=== PATIENT | female | born 1950 | race Caucasian/White ===

== ENCOUNTER 2016-12-24 11:07 | Emergency (ER) | payer BC, OTHER ==
[2016-12-24] MEDS ORDERED: KETOROLAC 60 MG/2 ML VIAL IVP STA (11:38)
[2016-12-24] MEDS ORDERED: DIAZEPAM 5 MG TAB PO STA (11:39)
--- NOTE | 2016-12-24 11:46 | ED ---
General Adult HPI - General Chief complaint: Chest Pain Stated complaint: RHONDA, PAIN UNDER LEFT BREAST Time Seen by Provider: 12/24/16 11:15 Source: patient, RN notes reviewed Mode of arrival: ambulatory Limitations: no limitations - History of Present Illness Initial comments: This is a 66-year-old female who presents to the emergency department complaining of left lateral chest pain with movement or deep breathing. Patient states she was lifting a heavy bin at work when she felt pain under her left breast. Patient states ever since then anytime she moves twists or bends the pain is worse. Patient states pressing on that area also increases the pain. Patient denies any shortness of breath or difficulty breathing. Patient denies any palpitation. Patient denies any diaphoresis. Patient denies any nausea vomiting. Patient denies abdominal pain. Patient denies any back pain. Patient denies any recent injury other than the one mentioned. Patient denies any lightheadedness dizziness or near syncopal episode. - Related Data Home Medications Medication Instructions Recorded Confirmed Colchicine [Colcrys] 0.6 mg PO DIRECTED PRN 05/13/14 12/24/16 Levothyroxine Sodium [Synthroid] 25 mcg PO DAILY 05/13/14 12/24/16 Metoprolol Tartrate 25 mg PO DAILY 05/13/14 12/24/16 Omeprazole 20 mg PO DAILY 05/13/14 12/24/16 buPROPion [Wellbutrin] 300 mg PO DAILY 05/13/14 12/24/16 Lisinopril [Prinivil] 5 mg PO DAILY 12/08/15 12/24/16 lamoTRIgine [LaMICtal] 100 mg PO QAM 12/08/15 12/24/16 lamoTRIgine [LaMICtal] 150 mg PO HS 12/19/15 12/24/16 Previous Rx's Medication Instructions Recorded Ibuprofen [Motrin] 600 mg PO Q6HR PRN #20 tab 12/24/16 traMADol HCl [Ultram] 50 mg PO Q6H PRN #20 tab 12/24/16 Allergies Allergy/AdvReac Type Severity Reaction Status Date / Time amlodipine besylate Allergy foot Verified 12/24/16 13:02 [From [facility]] swelling, rectal bleeding Review of Systems ROS Statement: Those systems with pertinent positive or pertinent negative responses have been documented in the HPI. ROS Other: All systems not noted in ROS Statement are negative. Past Medical History Past Medical History: Cancer, GERD/Reflux, Hypertension, Osteoarthritis (OA), Thyroid Disorder Additional Past Medical History / Comment(s): "dr watching kidneys-not sure why ", gout, hx cervical cancer History of Any Multi-Drug Resistant Organisms: None Reported Past Surgical History: Bladder Surgery, Hysterectomy, Orthopedic Surgery Additional Past Surgical History / Comment(s): bilat carpal tunnel, bladder suspension, ORIF rt ankle, Past Anesthesia/Blood Transfusion Reactions: No Reported Reaction Past Psychological History: Anxiety, Bipolar, Depression Smoking Status: Former smoker Past Alcohol Use History: Occasional Past Drug Use History: None Reported - Past Family History Sister(s) Family Medical History: Cancer General Exam - General Exam Comments Initial Comments: GENERAL: Patient is well-developed and well-nourished. Patient is nontoxic and well- hydrated and is in mild distress. ENT: Neck is soft and supple. No significant lymphadenopathy is noted. Oropharynx is clear. Moist mucous membranes. Neck has full range of motion without eliciting any pain. There is no thyroid enlargement and no masses were felt. EYES: The sclera were anicteric and conjunctiva were pink and moist. Extraocular movements were intact and pupils were equal round and reactive to light. Eyelids were unremarkable. PULMONARY: Unlabored respirations. Good breath sounds bilaterally. No audible rales rhonchi or wheezing was noted. CARDIOVASCULAR: There is a regular rate and rhythm without any murmurs gallops or rubs. Patient 's chest pain to palpation of the lateral aspect of her chest just under the left breast. ABDOMEN: Abdomen is soft nontender nondistended. SKIN: Skin is clear with no lesions or rashes and otherwise unremarkable. NEUROLOGIC: Patient is alert and oriented x3. Cranial nerves II through XII are grossly intact. Motor and sensory are also intact. Normal speech, volume and content. Symmetrical smile. Cerebellar exam grossly intact. MUSCULOSKELETAL: Normal extremities with adequate strength and full range of motion. No lower extremity swelling or edema. No calf tenderness. LYMPHATICS: No significant lymphadenopathy is noted PSYCHIATRIC: Normal psychiatric evaluation. Limitations: no limitations Course Vital Signs 12/24/16 12/24/16 12/24/16 11:12 12:16 13:05 Temperature 97.4 F L Pulse Rate 73 68 61 Respiratory 20 18 20 Rate Blood Pressure 187/85 167/80 148/80 O2 Sat by Pulse 97 97 96 Oximetry Medical Decision Making - Lab Data Result diagrams: 12/24/16 12:14 12/24/16 12:14 Lab Results 12/24/16 12/24/16 12/24/16 Range/Units 12:14 12:14 12:14 WBC 8.4 (3.8-10.6) k/uL RBC 4.21 (3.80-5.40) m/uL Hgb 12.8 (11.4-16.0) gm/dL Hct 38.2 (34.0-46.0) % MCV 90.9 (80.0-100.0) fL MCH 30.5 (25.0-35.0) pg MCHC 33.6 (31.0-37.0) g/dL RDW 13.8 (11.5-15.5) % Plt Count 303 (150-450) k/uL Neutrophils % 50 % Lymphocytes % 36 % Monocytes % 8 % Eosinophils % 2 % Basophils % 1 % Neutrophils # 4.2 (1.3-7.7) k/uL Lymphocytes # 3.0 (1.0-4.8) k/uL Monocytes # 0.6 (0-1.0) k/uL Eosinophils # 0.2 (0-0.7) k/uL Basophils # 0.1 (0-0.2) k/uL PT 10.2 (9.0-12.0) sec INR 1.0 (<1.2) APTT 23.4 (22.0-30.0) sec Sodium 137 (137-145) mmol/L Potassium 4.5 (3.5-5.1) mmol/L Chloride 102 (98-107) mmol/L Carbon Dioxide 24 (22-30) mmol/L Anion Gap 11 mmol/L BUN 37 H (7-17) mg/dL Creatinine 1.26 H (0.52-1.04) mg/dL Est GFR (MDRD) Af Amer 52 (>60 ml/min/1.73 sqM) Est GFR (MDRD) Non-Af 43 (>60 ml/min/1.73 sqM) Glucose 94 (74-99) mg/dL Calcium 10.9 H (8.4-10.2) mg/dL Magnesium 1.4 L (1.6-2.3) mg/dL Total Bilirubin 0.8 (0.2-1.3) mg/dL AST 55 H (14-36) U/L ALT 65 H (9-52) U/L Alkaline Phosphatase 80 (38-126) U/L Total Creatine Kinase (30-135) U/L CK-MB (CK-2) (0.0-2.4) ng/mL CK-MB (CK-2) Rel Index Troponin I (0.000-0.034) ng/mL Total Protein 7.4 (6.3-8.2) g/dL Albumin 4.3 (3.5-5.0) g/dL 12/24/16 Range/Units 12:14 WBC (3.8-10.6) k/uL RBC (3.80-5.40) m/uL Hgb (11.4-16.0) gm/dL Hct (34.0-46.0) % MCV (80.0-100.0) fL MCH (25.0-35.0) pg MCHC (31.0-37.0) g/dL RDW (11.5-15.5) % Plt Count (150-450) k/uL Neutrophils % % Lymphocytes % % Monocytes % % Eosinophils % % Basophils % % Neutrophils # (1.3-7.7) k/uL Lymphocytes # (1.0-4.8) k/uL Monocytes # (0-1.0) k/uL Eosinophils # (0-0.7) k/uL Basophils # (0-0.2) k/uL PT (9.0-12.0) sec INR (<1.2) APTT (22.0-30.0) sec Sodium (137-145) mmol/L Potassium (3.5-5.1) mmol/L Chloride (98-107) mmol/L Carbon Dioxide (22-30) mmol/L Anion Gap mmol/L BUN (7-17) mg/dL Creatinine (0.52-1.04) mg/dL Est GFR (MDRD) Af Amer (>60 ml/min/1.73 sqM) Est GFR (MDRD) Non-Af (>60 ml/min/1.73 sqM) Glucose (74-99) mg/dL Calcium (8.4-10.2) mg/dL Magnesium (1.6-2.3) mg/dL Total Bilirubin (0.2-1.3) mg/dL AST (14-36) U/L ALT (9-52) U/L Alkaline Phosphatase (38-126) U/L Total Creatine Kinase 388 H (30-135) U/L CK-MB (CK-2) 6.4 H* (0.0-2.4) ng/mL CK-MB (CK-2) Rel Index 1.6 Troponin I <0.012 (0.000-0.034) ng/mL Total Protein (6.3-8.2) g/dL Albumin (3.5-5.0) g/dL Disposition Clinical Impression: Strain of chest wall Disposition: HOME SELF-CARE Condition: Good Instructions: Chest Wall Pain (ED) Prescriptions: Ibuprofen [Motrin] 600 mg PO Q6HR PRN #20 tab PRN Reason: For pain traMADol HCl [Ultram] 50 mg PO Q6H PRN #20 tab PRN Reason: When necessary for pain Referrals: Jesus Sequeira MD [Primary Care Provider] - 1-2 days Time of Disposition: 13:17
[2016-12-24 12:24] LABS: Basophils # (A) 0.1 k/uL (0-0.2); Basophils % (A) 1 %; CH 31.9; CHCM 35.3; Eosinophils # (A) 0.2 k/uL (0-0.7); Eosinophils % (A) 2 %; HCT 38.2 % (34.0-46.0); HDW 2.24; HGB 12.8 gm/dL (11.4-16.0); Luc % (Auto) 4; Lymphocytes % (A) 36 %; MCH 30.5 pg (25.0-35.0); MCHC 33.6 g/dL (31.0-37.0); MCV 90.9 fL (80.0-100.0); Mean Platelet Volume 7.1; Monocytes # (A) 0.6 k/uL (0-1.0); Monocytes % (A) 8 %; Neutrophils # (A) 4.2 k/uL (1.3-7.7); Neutrophils % (A) 50 %; RBC 4.21 m/uL (3.80-5.40); RDW 13.8 % (11.5-15.5); WBC 8.4 k/uL (3.8-10.6); WBC (Perox) 8.79
--- NOTE | 2016-12-24 12:29 | XR ---
EXAMINATION TYPE: XR chest 2V DATE OF EXAM: 12/24/2016 COMPARISON: 03/23/2016 TECHNIQUE: PA and lateral views submitted. HISTORY: Chest pain FINDINGS: The lungs are clear and there is no pneumothorax, pleural effusion, or focal pneumonia. Hyperinflat ion noted. Correlate for COPD. IMPRESSION: 1. No acute process.
[2016-12-24 12:35] LABS: Partial Thromboplastin Time 23.4 sec (22.0-30.0); Prothrombin Time 10.2 sec (9.0-12.0)
[2016-12-24 12:38] LABS: Calcium 10.9 mg/dL (8.4-10.2); Magnesium 1.4 mg/dL (1.6-2.3); Potassium 4.5 mmol/L (3.5-5.1); Total Bilirubin 0.8 mg/dL (0.2-1.3); Total Protein 7.4 g/dL (6.3-8.2)
[2016-12-24 12:57] LABS: Creatine Kinase 388 U/L (30-135)
[2016-12-24 13:06] VITALS: RESP 20
[2016-12-24 13:09] LABS: Troponin I <0.012 ng/mL (0.000-0.034)
[2016-12-24 13:12] LABS: Creatine Kinase MB 6.4 ng/mL (0.0-2.4)
[2016-12-24 13:26] VITALS: BP 131/66; PULSE 68; TEMP 98.5
== END 2016-12-24 13:52 | disposition home or self-care (01) ==
LOC: EC 11:07
DX: S29.011A Strain of muscle and tendon of front wall of thorax, initial encounter (principal); K21.9 Gastro-esophageal reflux disease without esophagitis; I10 Essential (primary) hypertension; E07.9 Disorder of thyroid, unspecified; F31.9 Bipolar disorder, unspecified; Z88.8 Allergy status to other drugs, medicaments and biological substances; Z79.899 Other long term (current) drug therapy; Z87.891 Personal history of nicotine dependence; X50.0XXA Overexertion from strenuous movement or load, initial encounter; Y99.0 Civilian activity done for income or pay; Y92.69 Other specified industrial and construction area as the place of occurrence of the external cause
CPT/HCPCS: 99284; 96374; 36415; 93005; 80053; 82550; 82553; 83735; 84484; 85025; 85610; 85730; 71020; J1885

== ENCOUNTER → 2018-02-13 | Outpatient (CLI) | payer MEDICARE, BC ==
--- NOTE | 2018-02-15 10:24 | MM ---
Reason for exam: screening (asymptomatic). Last mammogram was performed 2 years and 8 months ago. History: Patient is postmenopausal and has history of endometrial cancer at age 47. Physical Findings: A clinical breast exam by your physician is recommended on an annual basis and results should be correlated with mammographic findings. MG 3D Screening Mammo W/Cad Bilateral CC and MLO view(s) were taken. Prior study comparison: June 12, 2015, bilateral MG screening mammo w CAD. May 20, 2014, bilateral MG screening mammo w CAD. There are scattered fibroglandular densities. Finding: There are increased typically benign fine grouped/clustered calcifications in the 12-1 o'clock middle position of the left breast 7cm from the nipple, may have distortion associated. New finding since June 12, 2015 and May 20, 2014. ASSESSMENT: Incomplete: need additional imaging evaluation, BI-RAD 0 RECOMMENDATION: Special view mammogram of the left breast. [facility] will attempt to contact patient to return for supplemental views.
== END | disposition home or self-care (01) ==
LOC: RADMAMWWP 13:10
PROVIDERS: ATTEND Internal Medicine
DX: Z12.31 Encounter for screening mammogram for malignant neoplasm of breast (principal)
CPT/HCPCS: 77063; 77067

== ENCOUNTER → 2018-02-24 | Outpatient (CLI) | payer MEDICARE, BC ==
--- NOTE | 2018-02-27 08:05 | MM ---
Reason for exam: additional evaluation requested from abnormal screening. Last mammogram was performed less than 1 month ago. History: Patient is postmenopausal and has history of endometrial cancer at age 47. Physical Findings: Nurse did not find any significant physical abnormalities on exam. MG 3D Work Up W/Cad LT CC with magnification, ML with magnification, and ML view(s) were taken of the left breast. Prior study comparison: February 13, 2018, bilateral MG 3d screening mammo w/cad. June 12, 2015, bilateral MG screening mammo w CAD. Finding: There are suspicious heterogeneous, grouped/clustered calcifications in the slight upper outer quadrant, middle position of the left breast. These results were verbally communicated with the patient and result sheet given to the patient on 02/24/18. ASSESSMENT: Suspicious, BI-RAD 4 RECOMMENDATION: Stereotactic core biopsy of the left breast. Called Dr. Negron with mammographic findings. Biopsy scheduled for 03/01/18 at [facility]. PRELIMINARY REPORT CALLED AND FAXED TO DR. NEGRON ON 02/27/18.
== END | disposition home or self-care (01) ==
LOC: RADMAMWWP 12:49
PROVIDERS: ATTEND Internal Medicine
DX: R92.8 Other abnormal and inconclusive findings on diagnostic imaging of breast (principal)
CPT/HCPCS: 77065; G0279; 77061

== ENCOUNTER → 2018-09-22 | Outpatient (CLI) | payer MEDICARE, BC ==
--- NOTE | 2018-09-22 13:05 | XR ---
EXAMINATION TYPE: XR chest 2V DATE OF EXAM: 09/22/2018 COMPARISON: Prior chest x-ray 12/24/2016 HISTORY: Dyspnea TECHNIQUE: Frontal and lateral views of the chest are obtained. FINDINGS: There is no focal air space opacity, pleural effusion, or pneumothorax seen. The cardiac silhouette size is within normal limits. The osseous structures are intact. IMPRESSION: No acute cardiopulmonary process.
== END | disposition home or self-care (01) ==
LOC: RADXRMAIN 11:12
PROVIDERS: ATTEND Family Medicine
DX: R06.00 Dyspnea, unspecified (principal)
CPT/HCPCS: 71046

== ENCOUNTER → 2018-11-21 | Outpatient (CLI) | payer MEDICARE, BC ==
--- NOTE | 2018-11-21 11:05 | MM ---
Reason for exam: follow-up at short interval from prior study. Last mammogram was performed 9 months ago. History: Patient is postmenopausal and has history of endometrial cancer at age 47. Stereotactic core biopsy of the left breast, March 01, 2018. Physical Findings: Nurse did not find any significant physical abnormalities on exam. MG 3D Diag Mammo W/Cad LT CC, MLO, and LM view(s) were taken of the left breast. Prior study comparison: February 24, 2018, left breast MG 3d work up w/cad LT. February 13, 2018, bilateral MG 3d screening mammo w/cad. The breast tissue is heterogeneously dense. This may lower the sensitivity of mammography. Benign appearing calcifications in the left breast and left upper outer quadrant middle depth biopsy marker near biopsy proven benign calcifications. No suspicious abnormality. These results were verbally communicated with the patient and result sheet given to the patient on 11/21/18. ASSESSMENT: Benign, BI-RAD 2 RECOMMENDATION: Return to routine screening mammogram schedule for both breasts. Back on schedule.
== END | disposition home or self-care (01) ==
LOC: RADMAMWWP 09:19
PROVIDERS: ATTEND Surgery
DX: R92.0 Mammographic microcalcification found on diagnostic imaging of breast (principal)
CPT/HCPCS: 77065; G0279; 77061

== ENCOUNTER → 2020-03-24 | Outpatient (CLI) | payer MEDICARE, BC ==
--- NOTE | 2020-03-25 13:22 | MM ---
Reason for exam: screening (asymptomatic). Last mammogram was performed 1 year and 4 months ago. History: Patient is postmenopausal and has history of endometrial cancer at age 47. Stereotactic core biopsy of the left breast, March 01, 2018. Physical Findings: A clinical breast exam by your physician is recommended on an annual basis and results should be correlated with mammographic findings. MG 3D Screening Mammo W/Cad Bilateral CC and MLO view(s) were taken. Prior study comparison: November 21, 2018, left breast MG 3d diag mammo w/cad LT. February 24, 2018, left breast MG 3d work up w/cad LT. There are scattered fibroglandular densities. No significant changes when compared with prior studies. ASSESSMENT: Benign, BI-RAD 2 RECOMMENDATION: Routine screening mammogram of both breasts in 1 year.
== END | disposition home or self-care (01) ==
LOC: RADMAMWWP 15:38
PROVIDERS: ATTEND Family Medicine
DX: Z12.31 Encounter for screening mammogram for malignant neoplasm of breast (principal)
CPT/HCPCS: 77063; 77067

== ENCOUNTER → 2020-04-18 | Outpatient (CLI) | payer MEDICARE ==
--- NOTE | 2020-04-18 15:43 | XR ---
EXAMINATION TYPE: XR Hip Complete RT DATE OF EXAM: 04/18/2020 COMPARISON: NONE HISTORY: Pain TECHNIQUE: 2 views submitted FINDINGS: There is no evidence of erosive change or acute fracture. Sclerotic density overlying the right proximal femur compatible with bone island. IMPRESSION: 1. No evidence of acute fracture or dislocation.
== END | disposition home or self-care (01) ==
LOC: RADXRMAIN 15:23
PROVIDERS: ATTEND Family Medicine
DX: M25.551 Pain in right hip (principal)
CPT/HCPCS: 73502

== ENCOUNTER → 2020-08-13 | Outpatient (CLI) | payer MEDICARE ==
--- NOTE | 2020-08-14 06:36 | US ---
EXAMINATION TYPE: US kidneys/renal and bladder DATE OF EXAM: 08/13/2020 COMPARISON: CT May 13, 2014 CLINICAL HISTORY: N18.31 STAGE 3 CHRONIC KIDNEY DISEASE. No pain. EXAM MEASUREMENTS: Right Kidney: 9.0 x 3.6 x 4.5 cm Left Kidney: 9.1 x 4.1 x 4.7 cm Right Kidney: No hydronephrosis or masses seen Left Kidney: Lateral lower cystic lesion = 1.1 x 1.0 x 1.0 cm. Bladder: anechoic, distended Bilateral Jets not seen Visualized liver is heterogeneously hyperechoic. Some cortical thinning is present bilaterally. No hy dronephrosis noted. IMPRESSION: No hydronephrosis seen bilaterally.
== END | disposition home or self-care (01) ==
LOC: RADUSWWP 14:57
PROVIDERS: ATTEND Internal Medicine
DX: N18.30 Chronic kidney disease, stage 3 unspecified (principal)
CPT/HCPCS: 76770

== ENCOUNTER → 2020-09-23 | Outpatient (CLI) | payer MEDICARE ==
--- NOTE | 2020-09-23 17:19 | MR ---
EXAMINATION TYPE: MR lumbar spine wo con DATE OF EXAM: 09/23/2020 COMPARISON: NONE HISTORY: Low back pain for years. TECHNIQUE: Multiplanar, multisequence imaging of the lumbar spine is performed without IV contrast. FINDINGS: Sagittal images of the lumbar spine show mild height loss or anterior wedging L1 level. Pro minent Schmorl node superior L1 endplate with smaller Schmorl node inferior L1 endplate. Alignment is satisfactory. Multilevel disc desiccation. Mild disc space narrowing L1-L2 level. Mild to moderate d isc space narrowing L5-S1 level with Modic type II endplate changes along right aspect. The conus med ullaris is normal in position and signal ending at L1-L2 disc space level. There is 1.5 cm Tarlov cys t at S3 level sagittal image 10. Mild multilevel anterior spurring. Posterior disc herniation T10-T11 level effaces the anterior thecal sac sagittal image 9. Axial images at T12-L1 level show prominent of the neural sheath and the foramina otherwise unremarka ble. Axial images at the L1-L2 levels right-sided neural sheath prominence. Mild broad disc bulge minimall y effaces the anterior thecal sac. Axial images at L2-L3 and L3-L4 levels appear within normal limits. Axial images at L4-L5 level show mild to moderate facet arthropathy bilaterally and ligament flavum h ypertrophy. There is mild broad disc bulge with left foraminal disc protrusion component causing mild left-sided anterior inferior neural foraminal narrowing. Spinal canal is preserved. Right-sided neur al foramen is patent. Axial images at L5-S1 level show moderate facet arthropathy bilaterally. There is broad-based right p aracentral disc protrusion minimally effacing the anterior thecal sac. Left-sided neural foramina is patent. Right side shows moderate to severe narrowing due to foraminal spur disc complex component. F indings best appreciated on sagittal images 13 and 14. Paraspinal muscle bulk is maintained. No suspicious incidental findings. IMPRESSION: Multilevel degenerative changes in the lumbar spine greatest at lumbosacral junction as d etailed above.
== END | disposition home or self-care (01) ==
LOC: RADMRIMAIN 15:29
PROVIDERS: ATTEND Family Medicine
DX: M51.26 Other intervertebral disc displacement, lumbar region (principal); M47.816 Spondylosis without myelopathy or radiculopathy, lumbar region; M99.73 Connective tissue and disc stenosis of intervertebral foramina of lumbar region
CPT/HCPCS: 72148

== ENCOUNTER → 2020-12-18 | Outpatient (CLI) | payer MEDICARE ==
[2020-12-18 23:44] LABS: HCT 34.2 % (37.2-46.3); HGB 11.4 g/dL (12.0-15.0); MCH 32.1 pg (27.0-32.0); MCHC 33.3 g/dL (32.0-37.0); MCV 96.3 fL (80.0-97.0); Mean Platelet Volume 11.9 fL (9.5-12.2); Platelet Count 212 X 10*3/uL (140-440); RBC 3.55 X 10*6/uL (4.10-5.20); RDW 13.7 % (11.5-14.5); WBC 9.15 X 10*3/uL (4.50-10.00)
[2020-12-19 07:30] LABS: % Iron Saturation 20.54 (12.00-45.00); Albumin 4.2 g/dL (3.80-4.90); Albumin/Globulin Ratio 1.68 (1.60-3.17); Anion Gap 11.2 mmol/L (4.00-12.00); BUN/Creat Ratio 19.38 Ratio (12.00-20.00); Calcium 10.3 mg/dL (8.7-10.3); Carbon Dioxide 24.8 mmol/L (21.6-31.8); Globulin 2.5 g/dL (1.6-3.3); Magnesium 1.7 mg/dL (1.5-2.4); Non-African American GFR(CKD) 32.8 (60.0-200.0); Potassium 4.4 mmol/L (3.5-5.5); Total Bilirubin 0.3 mg/dL (0.2-1.2); Total Protein 6.7 g/dL (6.2-8.2); Uric Acid 7.1 mg/dL (2.9-7.7)
[2020-12-19 07:31] LABS: Phosphorus 4.4 mg/dL (2.4-5.1)
[2020-12-19 07:45] LABS: Ferritin 392.2 ng/mL (10.0-291.0)
== END | disposition home or self-care (01) ==
LOC: LABWHC1 16:26
PROVIDERS: ATTEND Nurse Practitioner Family
DX: N18.31 Chronic kidney disease, stage 3a (principal); N39.0 Urinary tract infection, site not specified; N25.81 Secondary hyperparathyroidism of renal origin; E55.9 Vitamin D deficiency, unspecified; M10.9 Gout, unspecified
CPT/HCPCS: 36415; 80053; 82306; 82728; 83540; 83550; 83735; 83970; 84100; 84550; 85027

== ENCOUNTER → 2020-12-29 | Outpatient (CLI) | payer MEDICARE ==
[2020-12-29 22:10] LABS: African American GFR (CKD) 44.6 (60.0-200.0); Albumin 4.3 g/dL (3.80-4.90); Albumin/Globulin Ratio 1.65 (1.60-3.17); Anion Gap 11.3 mmol/L (4.00-12.00); BUN/Creat Ratio 27.86 Ratio (12.00-20.00); Calcium 11.1 mg/dL (8.7-10.3); Carbon Dioxide 22.7 mmol/L (21.6-31.8); Globulin 2.6 g/dL (1.6-3.3); Non-African American GFR(CKD) 38.5 (60.0-200.0); Total Bilirubin 0.6 mg/dL (0.2-1.2); Total Protein 6.9 g/dL (6.2-8.2)
== END | disposition home or self-care (01) ==
LOC: LABWHC1 12:19
PROVIDERS: ATTEND Nurse Practitioner Family
DX: N18.31 Chronic kidney disease, stage 3a (principal)
CPT/HCPCS: 36415; 80053

== ENCOUNTER → 2021-01-06 | Outpatient (CLI) | payer MEDICARE ==
[2021-01-06 15:48] LABS: Appearance,Urine Clear (Clear); Bacteria,Urine Rare /hpf; Bilirubin,Urine Negative (Negative); Blood,Urine Negative (Negative); Color,Urine Light Yellow; Glucose,Urine (UA) Negative (Negative); Ketones,Urine Negative (Negative); Leukocyte Esterase,Urine Negative (Negative); Mucus,Urine Rare /hpf; Nitrite,Urine Negative (Negative); Protein,Urine 1+ (Negative); RBC,Urine <1 /hpf (0-5); Specific Gravity,Urine 1.009 (1.001-1.035); Squamous Epithelial Cell,Urine 1 /hpf (0-4); Urobilinogen,Urine <2.0 mg/dL (<2.0); WBC,Urine <1 /hpf (0-5)
[2021-01-06 23:28] LABS: Basophils # (A) 0.06 X 10*3/uL (0.00-0.10); Basophils % (A) 0.6 %; Eosinophils # (A) 0.31 X 10*3/uL (0.04-0.35); Eosinophils % (A) 3.2 %; HCT 36.3 % (37.2-46.3); HGB 11.8 g/dL (12.0-15.0); Lymphocytes # (A) 3.06 X 10*3/uL (0.90-5.00); MCH 31.2 pg (27.0-32.0); MCHC 32.5 g/dL (32.0-37.0); Mean Platelet Volume 11.1 fL (9.5-12.2); Monocytes # (A) 1.07 X 10*3/uL (0.20-1.00); Monocytes % (A) 11.2 %; Neutrophils # (A) 5.03 X 10*3/uL (1.80-7.70); Neutrophils % (A) 52.7 %; Platelet Count 328 X 10*3/uL (140-440); RBC 3.78 X 10*6/uL (4.10-5.20); RDW 13.3 % (11.5-14.5); WBC 9.56 X 10*3/uL (4.50-10.00)
== END | disposition home or self-care (01) ==
LOC: LABWHC1 15:21
PROVIDERS: ATTEND Nurse Practitioner Family
DX: E55.9 Vitamin D deficiency, unspecified (principal); D63.1 Anemia in chronic kidney disease; N39.0 Urinary tract infection, site not specified; N25.81 Secondary hyperparathyroidism of renal origin; M10.9 Gout, unspecified; N18.31 Chronic kidney disease, stage 3a
CPT/HCPCS: 36415; 80053; 81001; 82306; 82728; 83540; 83550; 83735; 83970; 84100; 84550; 85025

== ENCOUNTER → 2021-01-12 | Outpatient (CLI) | payer MEDICARE ==
[2021-01-13 15:36] LABS: African American GFR (CKD) 41.1 (60.0-200.0); Anion Gap 20.3 mmol/L (4.00-12.00); BUN/Creat Ratio 16.27 Ratio (12.00-20.00); Blood Urea Nitrogen 24.4 mg/dL (9.0-27.0); Calcium 10.3 mg/dL (8.7-10.3); Carbon Dioxide 17.7 mmol/L (21.6-31.8); Non-African American GFR(CKD) 35.4 (60.0-200.0); Potassium 4.7 mmol/L (3.5-5.5)
== END | disposition home or self-care (01) ==
LOC: LABWHC1 15:38
PROVIDERS: ATTEND Internal Medicine
DX: N18.31 Chronic kidney disease, stage 3a (principal)
CPT/HCPCS: 36415; 80048

== ENCOUNTER → 2021-04-16 | Outpatient (CLI) | payer MEDICARE ==
--- NOTE | 2021-04-20 13:00 | MM ---
Reason for exam: screening (asymptomatic). Last mammogram was performed 1 year and 1 month ago. History: Patient is postmenopausal and has history of endometrial cancer at age 47. Stereotactic core biopsy of the left breast, March 01, 2018. Physical Findings: A clinical breast exam by your physician is recommended on an annual basis and results should be correlated with mammographic findings. MG 3D Screening Mammo W/Cad Bilateral CC and MLO view(s) were taken. Prior study comparison: March 24, 2020, bilateral MG 3d screening mammo w/cad. November 21, 2018, left breast MG 3d diag mammo w/cad LT. There are scattered fibroglandular densities. Finding: There are increased heterogeneous, grouped/clustered calcifications in the 10 o'clock upper outer quadrant, middle position of the right breast 10cm from the nipple. New finding since March 24, 2020 and November 21, 2018. ASSESSMENT: Incomplete: need additional imaging evaluation, BI-RAD 0 RECOMMENDATION: Special view mammogram of the right breast. [facility] will attempt to contact patient to return for supplemental views.
== END | disposition home or self-care (01) ==
LOC: RADMAMWWP 13:38
PROVIDERS: ATTEND Family Medicine
DX: Z12.31 Encounter for screening mammogram for malignant neoplasm of breast (principal); Z78.0 Asymptomatic menopausal state
CPT/HCPCS: 77063; 77067

== ENCOUNTER → 2021-05-07 | Outpatient (CLI) | payer MEDICARE ==
--- NOTE | 2021-05-08 08:30 | MM ---
Reason for exam: additional evaluation requested from abnormal screening. Last mammogram was performed 1 month ago. History: Patient is postmenopausal and has history of endometrial cancer at age 47. Stereotactic core biopsy of the left breast, March 01, 2018. Physical Findings: Nurse did not find any significant physical abnormalities on exam. MG 3D Work Up W/Cad RT CC with magnification, LM with magnification, and LM view(s) were taken of the right breast. Prior study comparison: April 16, 2021, bilateral MG 3d screening mammo w/cad. March 24, 2020, bilateral MG 3d screening mammo w/cad. Finding: There are intermediate concern, suspicious coarse heterogeneous, grouped/clustered calcifications in the upper outer quadrant, middle position of the right breast, 10cm from the nipple. New finding since April 16, 2021 and March 24, 2020. These results were verbally communicated with the patient and result sheet given to the patient on 05/07/21. ASSESSMENT: Suspicious, BI-RAD 4 RECOMMENDATION: Stereotactic core biopsy of the right breast. Called Dr. Lu's office with mammographic findings and has scheduled an appointment for the patient for 05/07/[address] Hankins. Biopsy scheduled for 05/28/21 at 8:00. PRELIMINARY REPORT CALLED AND FAXED TO DR. HANKINS ON 05/08/21.
== END | disposition home or self-care (01) ==
LOC: RADMAMWWP 14:12
PROVIDERS: ATTEND Family Medicine
DX: R92.1 Mammographic calcification found on diagnostic imaging of breast (principal); Z78.0 Asymptomatic menopausal state; Z85.42 Personal history of malignant neoplasm of other parts of uterus
CPT/HCPCS: 77065; G0279; 77061

== ENCOUNTER → 2021-05-28 | Day surgery (SDC) | payer MEDICARE ==
[2021-05-28 07:21] VITALS: RESP 16
--- NOTE | 2021-05-28 08:41 | P.PCN ---
Date of Procedure: 05/28/21 Preoperative Diagnosis: Mammographic abnormality right breast upper outer quadrant Postoperative Diagnosis: Same Procedure(s) Performed: Right breast stereotactic core biopsy Anesthesia: local Surgeon: Gayla Hankins Pathology: other (Breast tissue with calcifications of concern) Condition: stable Disposition: same day Indications for Procedure: Increased calcifications of concern right breast upper outer quadrant Operative Findings: Radiographic specimen reveals calcifications of concern Description of Procedure: [place] is a 70-year-old female noted on screening mammogram to have an area of concern in the right breast. Diagnostic mammogram confirmed this showing heterogeneous calcifications which had increased in number. Stereotactic core biopsy was recommended. Risks and benefits of the procedure were discussed with the patient. Alternatives such as watchful waiting or open resection the operating room were noted but not recommended. The patient was brought to the stereotactic core biopsy room. She was positioned prone on the Lo-rad table. A banana expert film was obtained. A lateral to medial approach was utilized. The calcifications of concern were identified. The lesion was targeted. The breast was prepped using Betadine. 18 mL of 1% lidocaine were used to anesthetize the area of concern. A 12-gauge vacuum- assisted core rotating biopsy needle was driven to the correct coordinates. A prefire film was obtained and the needle was noted to be in the correct location. The needle was fired. A postoperative film was obtained and the needle was noted to be in the correct location. 9 core biopsy specimens were obtained. Radiograph of the specimen revealed that the calcifications of concern were adequately sampled. A secure leonardo top hat clip was placed. The clip was noted to be in the correct location. The specimen was sent to pathology. The patient will follow-up with Dr. Feng next week.
[2021-05-28 08:56] VITALS: BP 150/78; PULSE 59; TEMP 98.6
--- NOTE | 2021-05-28 09:41 | MM ---
America is a 70-year-old female noted on screening mammogram to have an area of concern in the right breast. Diagnostic mammogram confirmed this showing heterogeneous calcifications which had increased in number. Stereotactic core biopsy was recommended. Risks and benefits of the procedure were discussed with the patient. Alternatives such as watchful waiting or open resection the operating room were noted but not recommended. The patient was brought to the stereotactic core biopsy room. She was positioned prone on the Lo-rad table. A mica miner film was obtained. A lateral to medial approach was utilized. The calcifications of concern were identified. The lesion was targeted. The breast was prepped using Betadine. 18 mL of 1% lidocaine were used to anesthetize the area of concern. A 12-gauge vacuum- assisted core rotating biopsy needle was driven to the correct coordinates. A prefire film was obtained and the needle was noted to be in the correct location. The needle was fired. A postoperative film was obtained and the needle was noted to be in the correct location. 9 core biopsy specimens were obtained. Radiograph of the specimen revealed that the calcifications of concern were adequately sampled. A secure leonardo top hat clip was placed. The clip was noted to be in the correct location. The specimen was sent to pathology. The patient will follow-up with Dr. Feng next week. DARLIN
== END | disposition home or self-care (01) ==
LOC: RADMAMWWP 07:10
PROVIDERS: ATTEND Surgery
DX: N60.21 Fibroadenosis of right breast (principal); R92.0 Mammographic microcalcification found on diagnostic imaging of breast
CPT/HCPCS: 19081; A4648; J2001; 88305; 88342

== ENCOUNTER → 2021-06-04 | Outpatient (CLI) | payer MEDICARE ==
[2021-06-04 16:29] VITALS: BP 187/90; PULSE 87; RESP 16; TEMP 97.6
--- NOTE | 2021-06-04 16:43 | P.PN ---
Subjective Progress Note Date: 06/04/21 Principal diagnosis: Fibroadenomatoid sclerotic stromal hyperplasia [place] is a 70-year-old white female status post right breast sterotactic core biopsy and . 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 She tolerated the procedure without difficulty. Objective - Vital Signs Vital signs: Vital Signs Temp 97.6 F 06/04/21 16:25 Pulse 87 06/04/21 16:25 Resp 16 06/04/21 16:25 BP 187/90 06/04/21 16:25 Pulse Ox Intake & Output 06/03/21 06/04/21 06/04/21 18:59 06:59 18:59 Weight 65.771 kg - Constitutional General appearance: Present: cooperative - EENT Eyes: Present: EOMI ENT: Present: hearing grossly normal - Neck Neck: Present: normal ROM - Respiratory Respiratory: bilateral: CTA - Cardiovascular Rhythm: regular Heart sounds: normal: S1, S2 - Integumentary Integumentary Comment(s): biopsy site clean and dry Mild ecchymosis of biopsy site No evidence of infection or hematoma Assessment and Plan Assessment: Impression: Patient status post her tactic core biopsy right breast benign findings 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 Lu
== END ==
LOC: WWCWWP 15:52
PROVIDERS: ATTEND Surgery
DX: N60.11 Diffuse cystic mastopathy of right breast (principal); D24.1 Benign neoplasm of right breast; N62 Hypertrophy of breast; Z87.891 Personal history of nicotine dependence; Z88.8 Allergy status to other drugs, medicaments and biological substances

== ENCOUNTER → 2021-07-23 | Outpatient (CLI) | payer MEDICARE ==
[2021-07-23 14:03] LABS: Appearance,Urine Cloudy (Clear); Bacteria,Urine Rare /hpf; Bilirubin,Urine Negative (Negative); Blood,Urine Negative (Negative); Color,Urine Light Yellow; Glucose,Urine (UA) Negative (Negative); Hyaline Casts,Urine 1 /lpf (0-2); Ketones,Urine Negative (Negative); Leukocyte Esterase,Urine Large (Negative); Nitrite,Urine Negative (Negative); PH, Urine 6.5 (5.0-8.0); Protein,Urine Trace (Negative); RBC,Urine 10 /hpf (0-5); Specific Gravity,Urine 1.007 (1.001-1.035); Squamous Epithelial Cell,Urine <1 /hpf (0-4); Urobilinogen,Urine <2.0 mg/dL (<2.0); WBC,Urine 67 /hpf (0-5)
[2021-07-23 14:33] LABS: Creatinine,Urine Random 39.1 mg/dL; Protein/Creatinine Ratio,Urine 0.946
[2021-07-23 17:40] LABS: HCT 39.2 % (37.2-46.3); HGB 12.5 g/dL (12.0-15.0); MCH 30.3 pg (27.0-32.0); MCHC 31.9 g/dL (32.0-37.0); MCV 95.1 fL (80.0-97.0); Mean Platelet Volume 9.6 fL (9.5-12.2); NRBC Per 100 WBC 0 /100 WBCS (0.0-0.0); Platelet Count 473 X 10*3/uL (140-440); RBC 4.12 X 10*6/uL (4.10-5.20); WBC 13.89 X 10*3/uL (4.50-10.00)
[2021-07-23 20:42] LABS: Anti-DNA, DS unit <1.0 IU/mL; DNA Double-Stranded NEGATIVE (NEGATIVE)
[2021-07-23 20:55] LABS: % Iron Saturation 22.39 (12.00-45.00); ALT 24 U/L (8-44); AST 25 U/L (13-35); African American GFR (CKD) 41.1 (60.0-200.0); Albumin/Globulin Ratio 1.14 (1.60-3.17); Alkaline Phosphatase 105 U/L (41-126); Blood Urea Nitrogen 30.9 mg/dL (9.0-27.0); Calcium 10.1 mg/dL (8.7-10.3); Carbon Dioxide 20.2 mmol/L (20.0-27.5); Chloride 100 mmol/L (96-109); Globulin 3.5 g/dL (1.6-3.3); Glucose 112 mg/dL (70-110); Iron 70 ug/dL (50-170); Magnesium 1.7 mg/dL (1.5-2.4); Non-African American GFR(CKD) 35.4 (60.0-200.0); Potassium 4.8 mmol/L (3.5-5.5); Sodium 136 mmol/L (135-145); Total Bilirubin <0.15 mg/dL (0.30-1.20); Total Iron Binding Capacity 312 ug/dL (228-460); Total Protein 7.5 g/dL (6.2-8.2); Uric Acid 5.4 mg/dL (2.9-7.7)
[2021-07-24 11:14] LABS: Free Kappa Lt Chain Qnt, Serum 4.99 mg/dL (0.33-1.94); Free Lambda Lt Chain Qnt, Seru 3.07 mg/dL (0.57-2.63)
[2021-07-24 14:16] LABS: C-ANCA <1:20 Titer (<1:20)
== END | disposition home or self-care (01) ==
LOC: LABWHC1 13:07
PROVIDERS: ATTEND Nurse Practitioner Family
DX: N25.81 Secondary hyperparathyroidism of renal origin (principal); N18.31 Chronic kidney disease, stage 3a; D64.9 Anemia, unspecified; N39.0 Urinary tract infection, site not specified; R80.9 Proteinuria, unspecified; E55.9 Vitamin D deficiency, unspecified; M10.9 Gout, unspecified
CPT/HCPCS: 36415; 80053; 81001; 82306; 82570; 82728; 83516; 83540; 83550; 83735; 83883; 83970; 84100; 84156; 84550; 85027; 86038; 86160; 86162; 86225; 86255; 86334

== ENCOUNTER → 2021-10-24 | Outpatient (CLI) | payer MEDICARE ==
[2021-10-24 14:00] LABS: Creatinine,Urine Random 28.7 mg/dL; Protein/Creatinine Ratio,Urine 1.394
[2021-10-24 16:24] LABS: HCT 38.6 % (37.2-46.3); HGB 12.5 g/dL (12.0-15.0); MCH 30.6 pg (27.0-32.0); MCHC 32.4 g/dL (32.0-37.0); MCV 94.4 fL (80.0-97.0); Mean Platelet Volume 11.1 fL (9.5-12.2); NRBC Per 100 WBC 0 /100 WBCS (0.0-0.0); Platelet Count 233 X 10*3/uL (140-440); RBC 4.09 X 10*6/uL (4.10-5.20); RDW 13.7 % (11.5-14.5)
[2021-10-24 16:27] LABS: Appearance,Urine Clear (Clear); Bilirubin,Urine Negative (Negative); Blood,Urine Negative (Negative); Color,Urine Yellow (Yellow); Ketones,Urine Negative (Negative); Nitrite,Urine Negative (Negative); PH, Urine 5.5 (5.0-8.0); Specific Gravity,Urine 1.008 (1.001-1.030); Urobilinogen,Urine 0.2 (0.2,1.0)
[2021-10-24 16:33] LABS: Bacteria,Urine None Seen /HPF (None Seen)
[2021-10-24 17:54] LABS: % Iron Saturation 34.48 (12.00-45.00); African American GFR (CKD) 35.3 (60.0-200.0); Albumin 4.2 g/dL (3.8-4.9); Albumin/Globulin Ratio 1.27 (1.60-3.17); Anion Gap 12.2 mmol/L (10.00-18.00); BUN/Creat Ratio 27.53 Ratio (12.00-20.00); Blood Urea Nitrogen 46.8 mg/dL (9.0-27.0); Calcium 9.9 mg/dL (8.7-10.3); Carbon Dioxide 21.8 mmol/L (20.0-27.5); Globulin 3.3 g/dL (1.6-3.3); Magnesium 1.9 mg/dL (1.5-2.4); Non-African American GFR(CKD) 30.5 (60.0-200.0); Phosphorus 3.8 mg/dL (2.4-5.1); Potassium 4.5 mmol/L (3.5-5.5); Total Bilirubin 0.3 mg/dL (0.30-1.20); Total Protein 7.5 g/dL (6.2-8.2); Uric Acid 9.1 mg/dL (2.9-7.7)
[2021-10-24 18:28] LABS: Urine Creatinine 28.5 mg/dL (28.0-217.0)
[2021-10-26 09:22] LABS: Hepatitis A Antibody IgM Nonreactive (Nonreactive); Hepatitis B Core IgM Nonreactive (Nonreactive); Hepatitis B Surface Antigen Nonreactive (Nonreactive); Hepatitis C IgG Antibody Nonreactive (Nonreactive)
== END | disposition home or self-care (01) ==
LOC: LABWHC1 11:19
PROVIDERS: ATTEND Internal Medicine
DX: N25.81 Secondary hyperparathyroidism of renal origin (principal); R53.83 Other fatigue; R80.9 Proteinuria, unspecified; D64.9 Anemia, unspecified; N39.0 Urinary tract infection, site not specified; E55.9 Vitamin D deficiency, unspecified; M10.9 Gout, unspecified; N18.31 Chronic kidney disease, stage 3a
CPT/HCPCS: 36415; 80053; 80074; 81001; 82043; 82306; 82570; 82728; 83540; 83550; 83735; 83970; 84100; 84156; 84550; 85027

== ENCOUNTER → 2021-11-02 | Outpatient (CLI) | payer MEDICARE ==
[2021-11-02 17:51] LABS: African American GFR (CKD) 41.1 (60.0-200.0); Albumin 4.1 g/dL (3.8-4.9); Albumin/Globulin Ratio 1.24 (1.60-3.17); Anion Gap 10.4 mmol/L (10.00-18.00); BUN/Creat Ratio 24.97 Ratio (12.00-20.00); Blood Urea Nitrogen 37.2 mg/dL (9.0-27.0); Calcium 10.2 mg/dL (8.7-10.3); Carbon Dioxide 23.3 mmol/L (20.0-27.5); Globulin 3.3 g/dL (1.6-3.3); Non-African American GFR(CKD) 35.5 (60.0-200.0); Total Bilirubin 0.3 mg/dL (0.30-1.20); Total Protein 7.4 g/dL (6.2-8.2)
== END | disposition home or self-care (01) ==
LOC: LABWHC1 11:53
PROVIDERS: ATTEND Internal Medicine
DX: N18.31 Chronic kidney disease, stage 3a (principal)
CPT/HCPCS: 36415; 80053

== ENCOUNTER → 2021-12-21 | Outpatient (CLI) | payer MEDICARE ==
[2021-12-21 15:21] LABS: Creatinine,Urine Random 35.7 mg/dL; Protein/Creatinine Ratio,Urine 0.784
[2021-12-21 18:09] LABS: Basophils # (A) 0.04 X 10*3/uL (0.00-0.10); Basophils % (A) 0.4 %; Eosinophils % (A) 3.3 %; HCT 37.7 % (37.2-46.3); HGB 12.2 g/dL (12.0-15.0); Immature Grans, Automated 0.2 %; Lymphocytes # (A) 2.89 X 10*3/uL (0.90-5.00); Lymphocytes % (A) 32.1 %; MCH 30.4 pg (27.0-32.0); MCHC 32.4 g/dL (32.0-37.0); Mean Platelet Volume 11.2 fL (9.5-12.2); Monocytes # (A) 0.99 X 10*3/uL (0.20-1.00); NRBC Per 100 WBC 0 /100 WBCS (0.0-0.0); Neutrophils # (A) 4.77 X 10*3/uL (1.80-7.70); Platelet Count 209 X 10*3/uL (140-440); RBC 4.01 X 10*6/uL (4.10-5.20); WBC 9.01 X 10*3/uL (4.50-10.00)
[2021-12-21 18:58] LABS: African American GFR (CKD) 40.8 (60.0-200.0); Albumin 3.9 g/dL (3.8-4.9); Albumin/Globulin Ratio 1.34 (1.60-3.17); Anion Gap 10.9 mmol/L (10.00-18.00); Blood Urea Nitrogen 34.5 mg/dL (9.0-27.0); Calcium 9.8 mg/dL (8.7-10.3); Carbon Dioxide 27.1 mmol/L (20.0-27.5); Globulin 2.9 g/dL (1.6-3.3); Non-African American GFR(CKD) 35.2 (60.0-200.0); Potassium 5.3 mmol/L (3.5-5.5); Total Bilirubin 0.4 mg/dL (0.30-1.20); Total Protein 6.8 g/dL (6.2-8.2)
[2021-12-21 21:04] LABS: Magnesium 1.8 mg/dL (1.5-2.4); Phosphorus 3.3 mg/dL (2.4-5.1); Uric Acid 5.6 mg/dL (2.9-7.7)
[2021-12-21 23:51] LABS: Appearance,Urine Clear (Clear); Bilirubin,Urine Negative (Negative); Blood,Urine Negative (Negative); Color,Urine Yellow (Yellow); Ketones,Urine Negative (Negative); Nitrite,Urine Negative (Negative); Specific Gravity,Urine 1.008 (1.001-1.030); Urobilinogen,Urine 0.2 (0.2,1.0)
[2021-12-22 02:03] LABS: Urine Creatinine 34.2 mg/dL (28.0-217.0)
== END | disposition home or self-care (01) ==
LOC: LABWHC1 13:30
PROVIDERS: ATTEND Nurse Practitioner Family
DX: E55.9 Vitamin D deficiency, unspecified (principal); E03.9 Hypothyroidism, unspecified; D64.9 Anemia, unspecified; N39.0 Urinary tract infection, site not specified; N25.81 Secondary hyperparathyroidism of renal origin; M10.9 Gout, unspecified; F32.5 Major depressive disorder, single episode, in full remission; R80.9 Proteinuria, unspecified; N18.31 Chronic kidney disease, stage 3a; Z71.3 Dietary counseling and surveillance
CPT/HCPCS: 36415; 80053; 81003; 82043; 82306; 82570; 82728; 83540; 83550; 83735; 83970; 84100; 84156; 84550; 85025

== ENCOUNTER → 2022-07-21 | Outpatient (CLI) | payer MEDICARE ==
--- NOTE | 2022-07-21 15:28 | MM ---
Reason for Exam: Additional evaluation requested from prior study. Last mammogram was performed 1 year(s) and 3 month(s) ago. Patient History: Menarche at age 16. First Full-Term at age 19. Left ovary removed at age 47. Right ovary removed at age 47. Hysterectomy at age 47. Postmenopausal. Endometrial cancer, age 47. 03/01/2018, Stereotactic Core Biopsy on the Left side. 05/28/2021, Benign Core Biopsy on the right side. Sister had ovarian cancer under age 50. Risk Values: Guera 5 year model risk: 1.7%. NCI Lifetime model risk: 5.2%. Prior Study Comparison: 06/12/2015 Bilateral Screening Mammogram, [facility]. 02/13/2018 Bilateral Screening Mammogram, [facility]. 02/24/2018 Left Diagnostic Mammogram, [facility]. 11/21/2018 Left Diagnostic Mammogram, [facility]. 03/24/2020 Bilateral Screening Mammogram, [facility]. 04/16/2021 Bilateral Screening Mammogram, [facility]. 05/07/2021 Right Diagnostic Mammogram, [facility]. Tissue Density: There are scattered fibroglandular densities. Findings: Analyzed By CAD. No suspicious masses, calcification, architectural distortion within either breast. Benign-appearing calcifications within both breasts. Biopsy clip within the right breast. Overall Assessment: Benign, BI-RAD 2 Management: Screening Mammogram of both breasts in 1 year. A clinical breast exam by your physician is recommended on an annual basis and results should be correlated with mammographic findings. This exam should not preclude additional follow-up of suspicious palpable abnormalities. Results were given to the patient verbally at the time of exam. Electronically signed and approved by: Benny Souza D.O.
== END | disposition home or self-care (01) ==
LOC: RADMAMWWP 09:45
PROVIDERS: ATTEND Family Medicine
DX: D24.9 Benign neoplasm of unspecified breast (principal); Z78.0 Asymptomatic menopausal state; Z80.41 Family history of malignant neoplasm of ovary; Z90.721 Acquired absence of ovaries, unilateral
CPT/HCPCS: 77066; G0279; 77062

== ENCOUNTER → 2022-08-10 | Outpatient (CLI) | payer MEDICARE ==
[2022-08-10 14:47] LABS: Creatinine,Urine Random 41.1 mg/dL; Protein/Creatinine Ratio,Urine 1.022
[2022-08-11 02:34] LABS: Basophils # (A) 0.04 X 10*3/uL (0.00-0.10); Basophils % (A) 0.4 %; Eosinophils # (A) 0.27 X 10*3/uL (0.04-0.35); Eosinophils % (A) 2.7 %; HCT 35.5 % (37.2-46.3); HGB 11.5 g/dL (12.0-15.0); Immature Grans, Automated 0.2 %; Lymphocytes # (A) 3.23 X 10*3/uL (0.90-5.00); Lymphocytes % (A) 32.2 %; MCH 31.5 pg (27.0-32.0); MCHC 32.4 g/dL (32.0-37.0); MCV 97.3 fL (80.0-97.0); Mean Platelet Volume 10.3 fL (9.5-12.2); Monocytes # (A) 1.04 X 10*3/uL (0.20-1.00); Monocytes % (A) 10.4 %; NRBC Per 100 WBC 0 /100 WBCS (0.0-0.0); Neutrophils # (A) 5.43 X 10*3/uL (1.80-7.70); Neutrophils % (A) 54.1 %; Platelet Count 369 X 10*3/uL (140-440); RBC 3.65 X 10*6/uL (4.10-5.20); RDW 13.5 % (11.5-14.5); WBC 10.03 X 10*3/uL (4.50-10.00)
[2022-08-11 02:52] LABS: % Iron Saturation 25.84 (12.00-45.00); African American GFR (CKD) 36.9 (60.0-200.0); Albumin 4.2 g/dL (3.8-4.9); Albumin/Globulin Ratio 1.62 (1.60-3.17); Anion Gap 12.6 mmol/L (10.00-18.00); BUN/Creat Ratio 27.12 Ratio (12.00-20.00); Blood Urea Nitrogen 44.2 mg/dL (9.0-27.0); Calcium 9.4 mg/dL (8.7-10.3); Carbon Dioxide 21.1 mmol/L (20.0-27.5); Globulin 2.6 g/dL (1.6-3.3); Magnesium 1.7 mg/dL (1.5-2.4); Non-African American GFR(CKD) 31.8 (60.0-200.0); Phosphorus 3.2 mg/dL (2.4-5.1); Potassium 5.5 mmol/L (3.5-5.5); Total Bilirubin 0.3 mg/dL (0.30-1.20); Total Protein 6.7 g/dL (6.2-8.2); Uric Acid 5.3 mg/dL (2.9-7.7)
[2022-08-11 05:04] LABS: Appearance,Urine Clear (Clear); Bilirubin,Urine Negative (Negative); Blood,Urine Negative (Negative); Color,Urine Yellow (Yellow); Ketones,Urine Negative (Negative); Nitrite,Urine Negative (Negative); PH, Urine 6.5 (5.0-8.0); Specific Gravity,Urine 1.009 (1.001-1.030); Urobilinogen,Urine 0.2 (0.2,1.0)
== END | disposition home or self-care (01) ==
LOC: LABWHC1 12:57
PROVIDERS: ATTEND Nurse Practitioner Family
DX: E55.9 Vitamin D deficiency, unspecified (principal); N18.31 Chronic kidney disease, stage 3a; M10.9 Gout, unspecified; D63.1 Anemia in chronic kidney disease; N25.81 Secondary hyperparathyroidism of renal origin; N39.0 Urinary tract infection, site not specified; R80.9 Proteinuria, unspecified
CPT/HCPCS: 36415; 80053; 81001; 82043; 82306; 82570; 82728; 83540; 83550; 83735; 83970; 84100; 84156; 84550; 85025

== ENCOUNTER → 2022-08-23 | Outpatient (CLI) | payer MEDICARE ==
[2022-08-23 16:03] LABS: African American GFR (CKD) 27.2 (60.0-200.0); BUN/Creat Ratio 26.71 Ratio (12.00-20.00); Blood Urea Nitrogen 56.1 mg/dL (9.0-27.0); Calcium 10.1 mg/dL (8.7-10.3); Carbon Dioxide 23.9 mmol/L (20.0-27.5); Non-African American GFR(CKD) 23.4 (60.0-200.0)
== END | disposition home or self-care (01) ==
LOC: LABWHC1 11:52
PROVIDERS: ATTEND Internal Medicine
DX: I12.9 Hypertensive chronic kidney disease with stage 1 through stage 4 chronic kidney disease, or unspecified chronic kidney disease (principal); N18.32 Chronic kidney disease, stage 3b
CPT/HCPCS: 36415; 80048; 83735

== ENCOUNTER → 2022-09-10 | Outpatient (CLI) | payer MEDICARE | END | disposition home or self-care (01) | LOC: LABWHC1 15:30 | PROVIDERS: ATTEND Internal Medicine | DX: I12.9 Hypertensive chronic kidney disease with stage 1 through stage 4 chronic kidney disease, or unspecified chronic kidney disease (principal); N18.9 Chronic kidney disease, unspecified ==

== ENCOUNTER → 2022-09-11 | Outpatient (CLI) | payer MEDICARE ==
[2022-09-11 10:47] LABS: African American GFR (CKD) 35 (>60 ml/min/1.73 sqM); Anion Gap 13 mmol/L; Blood Urea Nitrogen 52 mg/dL (7-17); Calcium 9.6 mg/dL (8.4-10.2); Carbon Dioxide 22 mmol/L (22-30); Chloride 92 mmol/L (98-107); Glucose 103 mg/dL (74-99); Non-African American GFR(CKD) 30 (>60 ml/min/1.73 sqM); Potassium 4.7 mmol/L (3.5-5.1); Sodium 127 mmol/L (137-145)
== END | disposition home or self-care (01) ==
LOC: LABWHC1 09:29
PROVIDERS: ATTEND Internal Medicine
DX: I12.9 Hypertensive chronic kidney disease with stage 1 through stage 4 chronic kidney disease, or unspecified chronic kidney disease (principal); N18.9 Chronic kidney disease, unspecified
CPT/HCPCS: 36415; 80048

== ENCOUNTER → 2022-09-17 | Outpatient (CLI) | payer MEDICARE ==
[2022-09-18 03:13] LABS: BUN/Creat Ratio 23.62 Ratio (12.00-20.00); Blood Urea Nitrogen 37.8 mg/dL (9.0-27.0); Chloride 96 mmol/L (96-109); Glucose 102 mg/dL (70-110); Potassium 5.6 mmol/L (3.5-5.5); Sodium 130 mmol/L (135-145)
[2022-09-18 03:14] LABS: Calcium 10.1 mg/dL (8.7-10.3)
== END | disposition home or self-care (01) ==
LOC: LABWHC1 11:12
PROVIDERS: ATTEND Internal Medicine
DX: I12.9 Hypertensive chronic kidney disease with stage 1 through stage 4 chronic kidney disease, or unspecified chronic kidney disease (principal)
CPT/HCPCS: 36415; 80048

== ENCOUNTER → 2022-09-23 | Outpatient (CLI) | payer MEDICARE | END | disposition home or self-care (01) | LOC: LABWHC1 13:42 | PROVIDERS: ATTEND Internal Medicine | DX: E87.5 Hyperkalemia (principal) | CPT/HCPCS: 36415; 84132 ==

== ENCOUNTER 2022-09-24 05:11 | Observation (INO) | payer MEDICARE ==
[2022-09-24] MEDS ORDERED: SODIUM CHLORIDE 0.9% 1,000 ML IV STA (05:50)
--- NOTE | 2022-09-24 05:50 | ED ---
General Adult HPI - General Chief complaint: Recheck/Abnormal Lab/Rx Stated complaint: Abnormal Labs, High Potassium Time Seen by Provider: 09/24/22 05:33 Source: patient Mode of arrival: ambulatory Limitations: no limitations - History of Present Illness Initial comments: Dictation was produced using [employer] dictation software. please excuse any gr ammatical, word or spelling errors. Chief Complaint: 71-year-old female presents to the emergency Department with abnormal outpatient lab History of Present Illness: Patient is 71-year-old female she has past medical history chronic kidney disease. She is at the nephrologists office yesterday. She is being evaluated for elevated potassium level. She received a call 1 hour prior to arrival stating that she should come to the ER to be evaluated for hyperkalemia. Potassium level she was told was 6.1. Patient has been suffering from a mild frontal headache for the last 7 days. Patient has a history of headaches. Denies any focal neurologic deficits. She does not say that her pain is worse in the morning. Patient states that the pain is mild and insidious in onset The ROS documented in this emergency department record has been reviewed and confirmed by me. Those systems with pertinent positive or negative responses have been documented in the HPI. All other systems are other negative and/or noncontributory. - Related Data Home Medications Medication Instructions Recorded Confirmed Colchicine [Colcrys] 0.6 mg PO DIRECTED PRN 05/13/14 06/04/21 Levothyroxine Sodium [Synthroid] 25 mcg PO DAILY 05/13/14 06/04/21 buPROPion [Wellbutrin] 300 mg PO DAILY 05/13/14 06/04/21 lamoTRIgine [LaMICtal] 150 mg PO DAILY 12/19/15 06/04/21 Docusate [Colace] 100 mg PO HS 05/07/21 06/04/21 Latanoprost/Pf [Latanoprost 0.005% 1 drop BOTH EYES HS 05/07/21 06/04/21 Eye Drop] Losartan [Cozaar] 100 mg PO DAILY 05/07/21 06/04/21 Metoprolol Succinate (ER) [Toprol 50 mg PO BID 05/07/21 06/04/21 Xl] allopurinoL [Zyloprim] 100 mg PO HS 05/07/21 06/04/21 Melatonin [Melatonin ER] 10 mg PO HS 05/20/21 06/04/21 Allergies Allergy/AdvReac Type Severity Reaction Status Date / Time amlodipine besylate Allergy foot Verified 09/24/22 05:19 [From Norvasc] swelling, rectal bleeding aripiprazole [From Abilify] AdvReac Hallucinati Verified 09/24/22 05:19 ons furosemide [From Lasix] AdvReac Nausea & Verified 09/24/22 05:19 Vomiting hydrochlorothiazide AdvReac Swelling Verified 09/24/22 05:19 Review of Systems ROS Statement: Those systems with pertinent positive or pertinent negative responses have been documented in the HPI. ROS Other: All systems not noted in ROS Statement are negative. Past Medical History Past Medical History: Cancer, GERD/Reflux, Hypertension, Osteoarthritis (OA), Thyroid Disorder Additional Past Medical History / Comment(s): "dr watching kidneys-not sure why", gout, hx cervical cancer History of Any Multi-Drug Resistant Organisms: None Reported Past Surgical History: Bladder Surgery, Hysterectomy, Orthopedic Surgery Additional Past Surgical History / Comment(s): bilat carpal tunnel, bladder suspension, ORIF rt ankle, Past Anesthesia/Blood Transfusion Reactions: No Reported Reaction Past Psychological History: Anxiety, Bipolar, Depression Smoking Status: Former smoker Past Alcohol Use History: Occasional Past Drug Use History: None Reported - Past Family History Sister(s) Family Medical History: Cancer General Exam - General Exam Comments Initial Comments: PHYSICAL EXAM: General Impression: Alert and oriented x3, not in acute distress HEENT: Normocephalic atraumatic, extra-ocular movements intact, pupils equal and reactive to light bilaterally, mucous membranes moist. Cardiovascular: Heart regular rate and rhythm Chest: Able to complete full sentences, no retractions, no tachypnea Abdomen: abdomen soft, non-tender, non-distended, no organomegaly Musculoskeletal: Pulses present and equal in all extremities, no peripheral edema Motor: no focal deficits noted Neurological: CN II-XII grossly intact, no focal motor or sensory deficits noted Skin: Intact with no visualized rashes Psych: Normal affect and mood Limitations: no limitations Course Vital Signs 09/24/22 05:16 Temperature 97.8 F Pulse Rate 73 Respiratory 18 Rate Blood Pressure 115/50 O2 Sat by Pulse 97 Oximetry EKG Findings - EKG Comments: EKG Findings:: My EKG interpretation: Ventricular rate 67, sinus rhythm,. A 186, QRS 84, QTc 384. No IA prolongation, no QTC prolongation, no ST or T-wave changes noted. Overall, this EKG is unremarkable Medical Decision Making - Medical Decision Making Was pt. sent in by a medical professional or institution (, [employer], REFINING STILL OPERATOR, urgent care, hospital, or senior care...) When possible be specific @ -Sent in from nephrology office for abnormal outpatient labs Did you speak to anyone other than the patient for history (EMS, parent, family, police, friend...)? What history was obtained from this source @ -No Did you review nursing and triage notes (agree or disagree)? Why? @ -I reviewed and agree with nursing and triage notes Were old charts reviewed (outside hosp., previous admission, EMS record, old EKG, old radiological studies, urgent care reports/EKG's, senior care records)? Report findings @ -No old charts were reviewed Differential Diagnosis (chest pain, altered mental status, abdominal pain women, abdominal pain men, vaginal bleeding, musculoskeletal, weakness, fever, dyspnea, syncope, headache, dizziness, GI bleed, back pain, seizure, CVA, palpatations, mental health)? @ -Differential Headache: Migraine, tension, cluster, carbon monoxide, central venous thrombosis, pension karma temporal arteritis, acute closure glaucoma, intercranial hemorrhage, mastoiditis, sinusitis, head injury, this is not meant to be an all-inclusive list. EKG interpreted by me (3pts min.). @ -See above X-rays interpreted by me (1pt min.). @ -None done CT interpreted by me (1pt min.). @ -No acute intracranial processes U/S interpreted by me (1pt. min.). @ -None done What testing was considered but not performed or refused? (CT, X-rays, U/S, labs)? Why? @ -None What meds were considered but not given or refused? Why? @ -None Did you discuss the management of the patient with other professionals (professionals i.e. AUTUMN Braxton, REFINING STILL OPERATOR, lab, RT, psych nurse, professor of social work, mine promotor, teacher, adult parole officer, case sealer)? Give summary @ -Labs and imaging was discussed Dr. Weaver for admission Was smoking cessation discussed for >3mins.? @ -No Was critical care preformed (if so, how long)? @ -No Were there social determinants of health that impacted care today? How? (Homelessness, low income, unemployed, alcoholism, drug addiction, transpor tation, low edu. Level, literacy, decrease access to med. care, mcc, rehab)? @ -No Was there de-escalation of care discussed even if they declined (Discuss DNR or withdrawal of care, Hospice)? DNR status @ -No What co-morbidities impacted this encounter? (DM, HTN, Smoking, COPD, CAD, Cancer, CVA, ARF, Chemo, Hep., AIDS, mental health diagnosis, sleep apnea, morbid obesity)? @ -None Was patient admitted / discharged? Hospital course, mention meds given and route, prescriptions, significant lab abnormalities, going to OR and other pertinent info. @ -71-year-old female presents emergency department for headache and abnormal outpatient lab. Patient labs were reviewed. She had blood drawn yesterday showed potassium level 6.1. Patient not having symptoms of hyperkalemia. Some sodium level was 125. She is having symptomatic hyponatremia. Patient given IV fluids. She'll be admitted for hyponatremia correction Undiagnosed new problem with uncertain prognosis? @ -No Drug Therapy requiring intensive monitoring for toxicity (Heparin, Nitro, Insulin, Cardizem)? @ -No Were any procedures done? @ -No Diagnosis/symptom? Acute, or Chronic, or Acute on Chronic? Uncomplicated (without systemic symptoms) or Complicated (systemic symptoms)? @ -1. Symptomatic hyponatremia Side effects of treatment? @ -No Exacerbation, Progression, or Severe Exacerbation? @ -No Poses a threat to life or bodily function? How? (Chest pain, [place], NE, pneumonia, PE, COPD, DKA, ARF, appy, cholecystitis, CVA, Diverticulitis, Homicidal, Suicidal, threat to staff... and all critical care pts) @ -yes - Lab Data Result diagrams: 09/24/22 05:59 Lab Results 09/24/22 Range/Units 05:59 Sodium 125 L (137-145) mmol/L Potassium 4.1 (3.5-5.1) mmol/L Chloride 95 L (98-107) mmol/L Carbon Dioxide 18 L (22-30) mmol/L Anion Gap 12 mmol/L BUN 41 H (7-17) mg/dL Creatinine 1.54 H (0.52-1.04) mg/dL Est GFR (CKD-EPI)AfAm 39 (>60 ml/min/1.73 sqM) Est GFR (CKD-EPI)NonAf 34 (>60 ml/min/1.73 sqM) Glucose 81 (74-99) mg/dL Calcium 8.8 (8.4-10.2) mg/dL Disposition Clinical Impression: Hyponatremia Disposition: ADMITTED IP TO THIS HOSP Condition: Fair Referrals: Alfie Lu DO [Primary Care Provider] - 1-2 days Decision Time: 06:43
[2022-09-24 06:14] LABS: African American GFR (CKD) 39 (>60 ml/min/1.73 sqM); Anion Gap 12 mmol/L; Blood Urea Nitrogen 41 mg/dL (7-17); Calcium 8.8 mg/dL (8.4-10.2); Carbon Dioxide 18 mmol/L (22-30); Chloride 95 mmol/L (98-107); Glucose 81 mg/dL (74-99); Non-African American GFR(CKD) 34 (>60 ml/min/1.73 sqM); Potassium 4.1 mmol/L (3.5-5.1); Sodium 125 mmol/L (137-145)
[2022-09-24] MEDS ORDERED: ONDANSETRON 4 MG/2 ML VIAL IVP STA (06:36)
[2022-09-24] MEDS ORDERED: diphenhydrAMINE 50 MG/ML 1 ML VIAL IVP STA (06:36)
[2022-09-24] MEDS ORDERED: NALOXONE 0.4 MG/ML 1 ML VIAL IV PRN (06:39)
[2022-09-24] MEDS ORDERED: SODIUM CHLORIDE 0.9% 1,000 ML IV SCH (06:45)
--- NOTE | 2022-09-24 08:00 | CT ---
EXAMINATION TYPE: CT brain wo con DATE OF EXAM: 09/24/2022 COMPARISON: None INDICATION: Headache DLP: 995.7 mGycm, Automated exposure control for dose reduction was used. CONTRAST: None CT of the brain is performed utilizing 3 mm thick sections through the posterior fossa and 3 mm thick sections through the remaining calvarium. Study is performed within 24 hours of arrival to the hosp ital. No abnormal hyperdensity is present to suggest an acute intracranial hemorrhage. No mass lesion is evident. No acute infarcts are evident. There may be some subtle hypodensity within the basal ganglion. Some w susannah matter ischemic-type changes maybe present. Ventricles and sulci are appropriate for the patient age. Paranasal sinuses and mastoid air cells within the [id number] are clear. No frontal sinusitis is e vident. IMPRESSIONS: 1. No acute intracranial process. 2. Minimal white matter changes may be present greater in the basal ganglion.
--- NOTE | 2022-09-24 09:00 | P.HPIM ---
History of Present Illness 71-year-old pleasant female was sent in from a nephrology's office for hyperkalemia. Although hyperkalemia was not evident in this ER admission, patient is found to be hyponatremic patient is complaining of frontal headache denied any other symptoms. Patient had issues with hyponatremia in the past patient admits to drinking lots of free water at home. Patient drinks 2 cups of coffee. Patient does have history of bipolar disorder is on Lamictal. Patient denied any nausea vomiting diarrhea patient does have chronic kidney disease with baseline creatinine around 1.4-1.5 patient's present creatinine is at that level well. REVIEW OF SYSTEMS: CONSTITUTIONAL: No fever, no malaise, no fatigue. HEENT: No recent visual problems or hearing problems. Denied any sore throat. CARDIOVASCULAR: No chest pain, orthopnea, PND, no palpitations, no syncope. PULMONARY: No shortness of breath, no cough, no hemoptysis. GASTROINTESTINAL: No diarrhea, no nausea, no vomiting, no abdominal pain. NEUROLOGICAL: no weakness, no numbness. HEMATOLOGICAL: Denies any bleeding or petechiae. GENITOURINARY: Denies any burning micturition, frequency, or urgency. MUSCULOSKELETAL/RHEUMATOLOGICAL: Denies any joint pain, swelling, or any muscle pain. ENDOCRINE: Denies any polyuria or polydipsia. The rest of the 14-point review of systems is negative. PHYSICAL EXAMINATION: GENERAL: The patient is alert and oriented x3, not in any acute distress. Well developed, well nourished. HEENT: Pupils are round and equally reacting to light. EOMI. No scleral icterus. No conjunctival pallor. Normocephalic, atraumatic. No pharyngeal erythema. No thyromegaly. CARDIOVASCULAR: S1 and S2 present. No murmurs, rubs, or gallops. PULMONARY: Chest is clear to auscultation, no wheezing or crackles. ABDOMEN: Soft, nontender, nondistended, normoactive bowel sounds. No palpable organomegaly. MUSCULOSKELETAL: No joint swelling or deformity. EXTREMITIES: No cyanosis, clubbing, or pedal edema. NEUROLOGICAL: Gross neurological examination did not reveal any focal deficits. SKIN: No rashes. 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 We'll obtain urine random sodium, random creatinine, TSH, serum osmolality urine osmolality -Chronic kidney disease stage III probably hypertensive nephrosclerosis next and heparin GERD -Hypothyroidism: TSH will be obtained DVT prophylaxis: Past Medical History Past Medical History: Cancer, GERD/Reflux, Hypertension, Osteoarthritis (OA), Thyroid Disorder Additional Past Medical History / Comment(s): "dr watching kidneys-not sure why", gout, hx cervical cancer History of Any Multi-Drug Resistant Organisms: None Reported Past Surgical History: Bladder Surgery, Hysterectomy, Orthopedic Surgery Additional Past Surgical History / Comment(s): bilat carpal tunnel, bladder suspension, ORIF rt ankle, Past Anesthesia/Blood Transfusion Reactions: No Reported Reaction Past Psychological History: Anxiety, Bipolar, Depression Smoking Status: Former smoker Past Alcohol Use History: Occasional Past Drug Use History: None Reported - Past Family History Sister(s) Family Medical History: Cancer Medications and Allergies Home Medications Medication Instructions Recorded Confirmed Type Levothyroxine Sodium [Synthroid] 25 mcg PO DAILY 05/13/14 09/24/22 History lamoTRIgine [LaMICtal] 150 mg PO DAILY 12/19/15 09/24/22 History Docusate [Colace] 100 mg PO Q48H 05/07/21 09/24/22 History Latanoprost/Pf [Latanoprost 0.005% 1 drop BOTH EYES HS 05/07/21 09/24/22 History Eye Drop] Metoprolol Succinate (ER) [Toprol 50 mg PO BID 05/07/21 09/24/22 History Xl] allopurinoL [Zyloprim] 100 mg PO DAILY 05/07/21 09/24/22 History Famotidine [Pepcid] 40 mg PO DAILY 09/24/22 09/24/22 History Numaqula 1 cap PO DAILY 09/24/22 09/24/22 History Tolterodine ER [Detrol LA] 4 mg PO DAILY 09/24/22 09/24/22 History buPROPion XL [Wellbutrin XL] 150 mg PO DAILY 09/24/22 09/24/22 History hydrALAZINE HCL [Apresoline] 50 mg PO BID 09/24/22 09/24/22 History Allergies Allergy/AdvReac Type Severity Reaction Status Date / Time amlodipine besylate Allergy foot Verified 09/24/22 08:28 [From Norvas] swelling, rectal bleeding aripiprazole [From Abilify] AdvReac Hallucinati Verified 09/24/22 08:28 ons furosemide [From Lasix] AdvReac Nausea & Verified 09/24/22 08:28 Vomiting hydrochlorothiazide AdvReac Swelling Verified 09/24/22 08:28 Physical Exam Vitals: Vital Signs Temp Pulse Resp BP Pulse Ox 09/24/22 07:04 70 16 147/67 100 09/24/22 05:16 97.8 F 73 18 115/50 97 Intake and Output 09/23/22 09/24/22 09/24/22 22:59 06:59 14:59 Other: Weight 65.771 kg Results CBC & Chem 7: 09/24/22 05:59 Labs: Abnormal Lab Results - Last 24 Hours (Table) 09/24/22 Range/Units 05:59 Sodium 125 L (137-145) mmol/L Chloride 95 L (98-107) mmol/L Carbon Dioxide 18 L (22-30) mmol/L BUN 41 H (7-17) mg/dL Creatinine 1.54 H (0.52-1.04) mg/dL
[2022-09-24] MEDS: LEVOTHYROXINE 25 MCG TAB PO SCH (09:38)
[2022-09-24] MEDS: allopurinoL 100 MG TAB PO SCH ×2 (09:38→09:41)
[2022-09-24] MEDS: FAMOTIDINE 20 MG TAB PO SCH ×2 (09:39→09:40)
[2022-09-24] MEDS: lamoTRIgine 100 MG TAB PO SCH (09:39)
[2022-09-24] MEDS: OXYBUTYNIN 10 MG TAB.ER.24 PO SCH (09:40)
[2022-09-24] MEDS: METOPROLOL SUCCINATE (ER) 50 MG TAB.ER.24H PO SCH ×2 (09:40→20:17)
[2022-09-24] MEDS: buPROPion XL 150 MG TAB.ER.24H PO SCH (09:41)
--- NOTE | 2022-09-24 11:11 | P.NPCON ---
History of Present Illness - Reason for Consult hyperkalemia - History of Present Illness Patient is a 71-year-old female with history of chronic kidney disease NKF stage IIIB with baseline creatinine about 1.5-1.6 mg/dL. Patient was advised to go into the hospital due to elevated potassium at 6.1 mg/L yesterday. Patient was maintained on losartan which will be discontinued. Patient denies use of any nonsteroidal anti-inflammatory agents. No significant urinary symptoms. Blood pressure was slightly on the lower side with systolic at 115 mmHg. No complaints of dizziness or lightheadedness. Sodium was noted to be at 125. Patient states that she had been on chlorthalidone which was discontinued early last month as she was not able to tolerate it. No history of nausea vomiting or diarrhea recently. No other new medications started recently. Review of Systems As per HPI Past Medical History Past Medical History: Cancer, GERD/Reflux, Hypertension, Osteoarthritis (OA), Thyroid Disorder Additional Past Medical History / Comment(s): "dr watching kidneys-not sure why", gout, hx cervical cancer History of Any Multi-Drug Resistant Organisms: None Reported Past Surgical History: Bladder Surgery, Hysterectomy, Orthopedic Surgery Additional Past Surgical History / Comment(s): bilat carpal tunnel, bladder suspension, ORIF rt ankle, Past Anesthesia/Blood Transfusion Reactions: No Reported Reaction Past Psychological History: Anxiety, Bipolar, Depression Smoking Status: Former smoker Past Alcohol Use History: Occasional Past Drug Use History: None Reported - Past Family History Sister(s) Family Medical History: Cancer Medications and Allergies Home Medications Medication Instructions Recorded Confirmed Type Levothyroxine Sodium [Synthroid] 25 mcg PO DAILY 05/13/14 09/24/22 History lamoTRIgine [LaMICtal] 150 mg PO DAILY 12/19/15 09/24/22 History Docusate [Colace] 100 mg PO Q48H 05/07/21 09/24/22 History Latanoprost/Pf [Latanoprost 0.005% 1 drop BOTH EYES HS 05/07/21 09/24/22 History Eye Drop] Metoprolol Succinate (ER) [Toprol 50 mg PO BID 05/07/21 09/24/22 History Xl] allopurinoL [Zyloprim] 100 mg PO DAILY 05/07/21 09/24/22 History Famotidine [Pepcid] 40 mg PO DAILY 09/24/22 09/24/22 History Numaqula 1 cap PO DAILY 09/24/22 09/24/22 History Tolterodine ER [Detrol LA] 4 mg PO DAILY 09/24/22 09/24/22 History buPROPion XL [Wellbutrin XL] 150 mg PO DAILY 09/24/22 09/24/22 History hydrALAZINE HCL [Apresoline] 50 mg PO BID 09/24/22 09/24/22 History Allergies Allergy/AdvReac Type Severity Reaction Status Date / Time amlodipine besylate Allergy foot Verified 09/24/22 08:28 [From [facility]] swelling, rectal bleeding aripiprazole [From Abilify] AdvReac Hallucinati Verified 09/24/22 08:28 ons furosemide [From Lasix] AdvReac Nausea & Verified 09/24/22 08:28 Vomiting hydrochlorothiazide AdvReac Swelling Verified 09/24/22 08:28 Physical Exam Vitals: Vital Signs Temp Pulse Resp BP Pulse Ox 09/24/22 07:04 70 16 147/67 100 09/24/22 05:16 97.8 F 73 18 115/50 97 Intake and Output 09/23/22 09/24/22 09/24/22 22:59 06:59 14:59 Other: Weight 65.771 kg Patient is awake, comfortable, alert oriented 3. Not in any acute distress Examination of the heart S1 and S2 Examination of the lungs bilateral breath sounds are heard Abdomen is soft nontender Examination of lower extremity shows trace edema [employer] exam grossly intact Results - Lab Results Most recent lab results Calcium 8.8 mg/dL (8.4-10.2) 09/24/22 05:59 09/24/22 05:59 Assessment and Plan Assessment: 1. Chronic kidney disease NKF stage IIIB with baseline creatinine about 1.5-1.6 mg/dL secondary to nephrosclerosis 2. Hyperkalemia associated with use of angiotensin receptor blockers. Blood pressure may have been on the lower side at home. We also need to rule out urine retention. Losartan has been discontinued. 3. Hyponatremia, patient appears euvolemic. Check urine osmolality and random urine sodium. Currently maintained on normal saline 4. Non-gap metabolic acidosis associated with chronic kidney disease 5. Hypertension, blood pressure controlled, slightly on the lower side with s ystolic at 1:15 Plan: Repeat sodium now Check random urine sodium and urine osmolality Check bladder scan and rule out urine retention DC losartan Continue off of thiazide diuretics Patient will need some degree of fluid restriction and further management of hyponatremia based on urine osmolality Thank you for the consultation. We will continue to follow the patient with you during her hospitalization.
[2022-09-24] MEDS ORDERED: ACETAMINOPHEN TAB 325 MG TAB PO PRN (13:09)
[2022-09-24] MEDS ORDERED: LATANOPROST 0.005% OPHTH DROPS 2.5 ML BTL BOTH EYES SCH (21:00)
[2022-09-25] MEDS: LEVOTHYROXINE 25 MCG TAB PO SCH (05:52)
[2022-09-25 07:14] LABS: African American GFR (CKD) 47 (>60 ml/min/1.73 sqM); Anion Gap 7 mmol/L; Blood Urea Nitrogen 35 mg/dL (7-17); Calcium 8.5 mg/dL (8.4-10.2); Carbon Dioxide 20 mmol/L (22-30); Chloride 103 mmol/L (98-107); Glucose 94 mg/dL (74-99); Non-African American GFR(CKD) 41 (>60 ml/min/1.73 sqM); Potassium 5.4 mmol/L (3.5-5.1); Sodium 130 mmol/L (137-145)
[2022-09-25 08:25] VITALS: BP 118/62; PULSE 70; RESP 16; TEMP 98.2
[2022-09-25] MEDS ORDERED: SODIUM ZIRCONIUM CYCLOSILICATE 10 GM PACKET PO ONE (08:30)
[2022-09-25] MEDS: OXYBUTYNIN 10 MG TAB.ER.24 PO SCH (08:51)
[2022-09-25] MEDS: METOPROLOL SUCCINATE (ER) 50 MG TAB.ER.24H PO SCH (08:51)
[2022-09-25] MEDS: FAMOTIDINE 20 MG TAB PO SCH (08:51)
[2022-09-25] MEDS: allopurinoL 100 MG TAB PO SCH (08:51)
[2022-09-25] MEDS: buPROPion XL 150 MG TAB.ER.24H PO SCH (08:52)
[2022-09-25] MEDS: lamoTRIgine 100 MG TAB PO SCH (08:52)
[2022-09-25] MEDS ORDERED: DOCUSATE 100 MG CAP PO SCH (09:00)
--- NOTE | 2022-09-25 11:43 | US ---
EXAMINATION TYPE: US kidneys/renal and bladder DATE OF EXAM: 09/25/2022 COMPARISON: 08/13/2020 CLINICAL INDICATION: Female, 71 years old with history of lulú; LULÚ, high potassium. EXAM MEASUREMENTS: Right Kidney: 9.7 x 3.8 x 4.4 cm Left Kidney: 9.2 x 4.0 x 5.6 cm Right Kidney: No hydronephrosis or masses seen Left Kidney: hypoechoic lesion inferior pole = 1.5cm Bladder: wnl There is no evidence for hydronephrosis at this point in time. No nephrolithiasis is seen. No maggi s are identified. The urinary bladder is anechoic. Bilateral ureteral jets are seen. IMPRESSION: 1. No evidence for obstructive uropathy. 2. Hypoechoic probable left cyst. Stable from prior on 08/13/2020.
--- NOTE | 2022-09-25 12:24 | P.PN ---
Subjective Patient is seen for follow-up for hyperkalemia as well as hyponatremia. She wants to go home No significant urinary symptoms Potassium 5.4 today with serum creatinine down to 1.3. Sodium was 130 today. Objective - Vital Signs Vital signs: Vital Signs Temp 98.2 F 09/25/22 07:00 Pulse 70 09/25/22 07:00 Resp 16 09/25/22 07:00 BP 118/62 09/25/22 07:00 Pulse Ox 95 09/25/22 07:00 FiO2 Intake & Output 09/24/22 09/25/22 09/25/22 18:59 06:59 18:59 Intake Total 709 358 Output Total 500 500 Balance 209 -142 Weight 65.771 kg Intake: Oral 709 358 Output: Urine 500 500 Other: Voiding Method Toilet # Voids 2 1 - Exam Patient is awake, comfortable Alert oriented 3 She appears euvolemic No evidence of edema noted RETIREMENT ACTU[facility] exam grossly intact - Labs CBC & Chem 7: 09/25/22 06:28 Labs: Abnormal Lab Results - Last 24 Hours (Table) 09/24/22 09/25/22 Range/Units 14:33 06:28 Sodium 130 L (137-145) mmol/L Potassium 5.4 H (3.5-5.1) mmol/L Carbon Dioxide 20 L (22-30) mmol/L BUN 35 H (7-17) mg/dL Creatinine 1.34 H (0.52-1.04) mg/dL Ur Random Sodium 27 L (40-220) mmol/L Assessment and Plan Assessment: 1. Chronic kidney disease NKF stage IIIB with baseline creatinine about 1.5-1.6 mg/dL secondary to nephrosclerosis 2. Hyperkalemia associated with use of angiotensin receptor blockers. Blood pressure may have been on the lower side at home. We also need to rule out urine retention. Losartan has been discontinued. 3. Hyponatremia, patient appears euvolemic. Check urine osmolality and random urine sodium. Currently maintained on normal saline 4. Non-gap metabolic acidosis associated with chronic kidney disease 5. Hypertension, blood pressure controlled, slightly on the lower side with systolic at 115 Plan: Agree with ced check ultrasound of the kidneys patient is continue to stay off of angiotensin receptor blockers Repeat labs as outpatient in about 4-5 days Maintain fluid restriction post discharge
--- NOTE | 2022-09-26 15:15 | P.DS ---
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 -Hyperkalemia -Chronic kidney disease stage III probably hypertensive nephrosclerosis -GERD -Hypothyroidism Full Code Discharge Disposition Patient is stable for discharge home. Recommended to continue on 1500 ml fluid restriction and repeat labs in 2 to 3 days. Patient to follow up with nephrology in 1 week on discharge. Recommend patient to stay off ARBS. Hospital Course 71-year-old pleasant female was sent in from a nephrology's office for hyperkalemia. Patient is found to be hyponatremic patient is complaining of frontal headache denied any other symptoms. Patient had issues with hyponatremia in the past patient admits to drinking lots of free water at home. Patient drinks 2 cups of coffee. Patient does have history of bipolar disorder is on Lamictal. Patient denied any nausea vomiting diarrhea patient does have chronic kidney disease with baseline creatinine around 1.4-1.5 patient's present creatinine is at that level well. Patient was admitted and nephrology was placed on consultation. Abdomen bladder ultrasound showing no evidence for obstructive uropathy, hypoechoic probable left cyst stable from prior on 08/13/2020. Had brain CT negative for acute findings, there was minimal white matter changes may be present greater in the basal ganglion. Patient was treated with normal saline and sodium improved to 130. Patient is given a dose of lokelma for potassium 5.4. Recommended to stay off losartan on discharge. Denying any shortness of breath, no chest pain. No dizziness or lightheadedness. Patient will be discharged home. Please see medication reconciliation for a list of current medication. Thank you for allowing us to participate in the care of this patient. The impression and plan of care has been dictated by Shanique Perkins, Nurse Practitioner as directed. Dr. Saman MD I have performed a history and physical examination and medical decision making of this patient, discussed the same with the dictator, and agree with the dictators assessment and plan as written, documented as a scribe. Based on total visit time, I have performed more than 50% of this visit. Patient Condition at Discharge: Stable Plan - Discharge Summary Discharge Rx Participant: No New Discharge Prescriptions: Continue Levothyroxine Sodium [Synthroid] 25 mcg PO DAILY lamoTRIgine [LaMICtal] 150 mg PO DAILY Metoprolol Succinate (ER) [Toprol XL] 50 mg PO BID Latanoprost/Pf [Latanoprost 0.005% Eye Drop] 1 drop BOTH EYES HS Docusate [Colace] 100 mg PO Q48H allopurinoL [Zyloprim] 100 mg PO DAILY Famotidine [Pepcid] 40 mg PO DAILY Tolterodine ER [Detrol LA] 4 mg PO DAILY buPROPion XL [Wellbutrin XL] 150 mg PO DAILY Numaqula 1 cap PO DAILY Discontinued hydrALAZINE HCL [Apresoline] 50 mg PO BID Discharge Medication List Levothyroxine Sodium [Synthroid] 25 mcg PO DAILY 05/13/14 [History] lamoTRIgine [LaMICtal] 150 mg PO DAILY 12/19/15 [History] Docusate [Colace] 100 mg PO Q48H 05/07/21 [History] Latanoprost/Pf [Latanoprost 0.005% Eye Drop] 1 drop BOTH EYES HS 05/07/21 [History] Metoprolol Succinate (ER) [Toprol XL] 50 mg PO BID 05/07/21 [History] allopurinoL [Zyloprim] 100 mg PO DAILY 05/07/21 [History] Famotidine [Pepcid] 40 mg PO DAILY 09/24/22 [History] Numaqula 1 cap PO DAILY 09/24/22 [History] Tolterodine ER [Detrol LA] 4 mg PO DAILY 09/24/22 [History] buPROPion XL [Wellbutrin XL] 150 mg PO DAILY 09/24/22 [History] Follow up Appointment(s)/Referral(s): Alfei Lu DO [Primary Care Provider] - 1-2 days Dash Yates DO [STAFF PHYSICIAN] - 1 Week Ambulatory/Diagnostic Orders: Basic Metabolic Panel [LAB.AMB] Time Frame: 3 Days, Location: None Selected Patient Instructions/Handouts: Hyponatremia (DC), Hyperkalemia (DC) Activity/Diet/Wound Care/Special Instructions: Continue with 1500 ml fluid restriction per 24 hours Repeat labs in 2 to 3 days and follow up with nephrology in 1 week Discharge Disposition: HOME SELF-CARE
[2022-10-01 11:53] LABS: Creatinine,Urine Random 135.2 mg/dL (28.0-217.0)
== END 2022-09-25 12:56 | disposition home or self-care (01) ==
LOC: EC 05:11 → 6NMEDSUR 06:39
PROVIDERS: ADMIT Internal Medicine; ATTEND Internal Medicine
DX: E87.1 Hypo-osmolality and hyponatremia (principal); E87.5 Hyperkalemia; I12.9 Hypertensive chronic kidney disease with stage 1 through stage 4 chronic kidney disease, or unspecified chronic kidney disease; N18.32 Chronic kidney disease, stage 3b; K21.9 Gastro-esophageal reflux disease without esophagitis; E03.9 Hypothyroidism, unspecified; F31.9 Bipolar disorder, unspecified; M19.90 Unspecified osteoarthritis, unspecified site; M10.9 Gout, unspecified; Z85.41 Personal history of malignant neoplasm of cervix uteri; Z90.710 Acquired absence of both cervix and uterus; Z98.890 Other specified postprocedural states; F41.9 Anxiety disorder, unspecified; Z87.891 Personal history of nicotine dependence; Z80.9 Family history of malignant neoplasm, unspecified; Z79.890 Hormone replacement therapy; Z79.899 Other long term (current) drug therapy; Z88.8 Allergy status to other drugs, medicaments and biological substances; E87.20 Acidosis, unspecified
CPT/HCPCS: 99284; 36415; 93005; 84300; 83930; 82570; 80048 ×2; 84443; 84295; 83935; 76770; 70450; G0378 ×2

== ENCOUNTER → 2022-09-29 | Outpatient (CLI) | payer MEDICARE ==
[2022-09-29 09:11] LABS: African American GFR (CKD) 43 (>60 ml/min/1.73 sqM); Anion Gap 8 mmol/L; Blood Urea Nitrogen 35 mg/dL (7-17); Calcium 9.1 mg/dL (8.4-10.2); Carbon Dioxide 24 mmol/L (22-30); Chloride 97 mmol/L (98-107); Glucose 114 mg/dL (74-99); Non-African American GFR(CKD) 37 (>60 ml/min/1.73 sqM); Potassium 4.8 mmol/L (3.5-5.1); Sodium 129 mmol/L (137-145)
== END | disposition home or self-care (01) ==
LOC: LABWHC1 07:16
PROVIDERS: ATTEND Internal Medicine
DX: E87.5 Hyperkalemia (principal); E87.1 Hypo-osmolality and hyponatremia
CPT/HCPCS: 36415; 80048

== ENCOUNTER → 2022-10-11 | Outpatient (CLI) | payer MEDICARE ==
[2022-10-11 21:38] LABS: % Iron Saturation 33.02 (12.00-45.00); Iron 105 UG/DL (50-170); Magnesium 1.5 mg/dL (1.5-2.4); Phosphorus 3.4 mg/dL (2.4-5.1); Total Iron Binding Capacity 318 UG/DL (228-460); Uric Acid 6.9 mg/dL (2.9-7.7)
[2022-10-11 22:19] LABS: ALT 41 U/L (8-44); AST 26 U/L (13-35); Albumin 4.1 d/dL (3.8-4.9); Albumin/Globulin Ratio 1.58 Ratio (1.60-3.17); Alkaline Phosphatase 84 U/L (41-126); BUN/Creat Ratio 19.93 Ratio (12.00-20.00); Blood Urea Nitrogen 29.9 mg/dL (9.0-27.0); Carbon Dioxide 23.7 mmol/L (21.6-31.8); Chloride 97 mmol/L (96-109); Globulin 2.6 d/dL (1.6-3.3); Glucose 93 mg/dL (70-110); Potassium 4.9 mmol/L (3.5-5.5); Sodium 134 mmol/L (135-145); Total Bilirubin 0.6 mg/dL (0.3-1.2); Total Protein 6.7 d/dL (6.2-8.2)
[2022-10-11 23:03] LABS: Basophils # (A) 0.08 X 10*3/uL (0.00-0.10); Basophils % (A) 0.9 %; Eosinophils # (A) 0.43 X 10*3/uL (0.04-0.35); Eosinophils % (A) 4.8 %; HCT 33.9 % (37.2-46.3); HGB 10.8 d/dL (12.0-15.0); MCH 31.6 pg (27.0-32.0); MCHC 31.9 d/dL (32.0-37.0); MCV 99.1 FL (80.0-97.0); Mean Platelet Volume 10.9 FL (9.5-12.2); Monocytes # (A) 1.26 X 10*3/uL (0.20-1.00); Monocytes % (A) 14.1 %; NRBC Per 100 WBC 0 X 10*3/uL (0.00-0.01); Neutrophils # (A) 4.64 X 10*3/uL (1.80-7.70); Platelet Count 348 X 10*3/uL (140-440); RBC 3.42 X 10*6/uL (4.10-5.20); RDW 13.4 % (11.5-14.5); WBC 8.93 X 10*3/uL (4.50-10.00)
[2022-10-11 23:09] LABS: Appearance,Urine Clear (Clear); Bilirubin,Urine Negative (Negative); Blood,Urine Negative (Negative); Color,Urine Yellow (Yellow); Ketones,Urine Negative (Negative); Nitrite,Urine Negative (Negative); PH, Urine 6.5; Specific Gravity,Urine 1.006 (1.001-1.030); Urobilinogen,Urine 0.2 E.U./DL
== END | disposition home or self-care (01) ==
LOC: LABWHC1 10:59
PROVIDERS: ATTEND Internal Medicine
DX: E55.9 Vitamin D deficiency, unspecified (principal); D63.1 Anemia in chronic kidney disease; N18.32 Chronic kidney disease, stage 3b; N25.81 Secondary hyperparathyroidism of renal origin; M10.9 Gout, unspecified
CPT/HCPCS: 36415; 80053; 81003; 82306; 82728; 83540; 83550; 83735; 83970; 84100; 84550; 85025

== ENCOUNTER → 2022-10-14 | Outpatient (CLI) | payer MEDICARE ==
[2022-10-14 21:31] LABS: Appearance,Urine Clear (Clear); Bilirubin,Urine Negative (Negative); Blood,Urine Negative (Negative); Color,Urine Yellow (Yellow); Ketones,Urine Negative (Negative); Nitrite,Urine Negative (Negative); Specific Gravity,Urine 1.008 (1.001-1.030); Urobilinogen,Urine 0.2 E.U./DL
[2022-10-14 21:39] LABS: HCT 34.8 % (37.2-46.3); HGB 11.1 d/dL (12.0-15.0); MCH 31.4 pg (27.0-32.0); MCHC 31.9 d/dL (32.0-37.0); MCV 98.6 FL (80.0-97.0); Mean Platelet Volume 11.2 FL (9.5-12.2); NRBC Per 100 WBC 0 X 10*3/uL (0.00-0.01); Platelet Count 332 X 10*3/uL (140-440); RBC 3.53 X 10*6/uL (4.10-5.20); RDW 13.5 % (11.5-14.5); WBC 9.92 X 10*3/uL (4.50-10.00)
[2022-10-14 21:43] LABS: Bacteria,Urine None Seen (None Seen)
[2022-10-14 21:46] LABS: % Iron Saturation 23.36 (12.00-45.00); ALT 46 U/L (8-44); AST 34 U/L (13-35); Albumin 4.4 d/dL (3.8-4.9); Albumin/Globulin Ratio 1.57 Ratio (1.60-3.17); Alkaline Phosphatase 89 U/L (41-126); BUN/Creat Ratio 20.77 Ratio (12.00-20.00); Calcium 10.6 mg/dL (8.7-10.3); Carbon Dioxide 24.1 mmol/L (21.6-31.8); Chloride 100 mmol/L (96-109); Globulin 2.8 d/dL (1.6-3.3); Glucose 100 mg/dL (70-110); Iron 75 UG/DL (50-170); Magnesium 1.7 mg/dL (1.5-2.4); Phosphorus 3.2 mg/dL (2.4-5.1); Potassium 4.7 mmol/L (3.5-5.5); Sodium 137 mmol/L (135-145); Total Bilirubin 0.4 mg/dL (0.3-1.2); Total Iron Binding Capacity 321 UG/DL (228-460); Total Protein 7.2 d/dL (6.2-8.2); Uric Acid 6.8 mg/dL (2.9-7.7)
[2022-10-15 07:50] LABS: Total Volume 24 Hour,Urine 2050 mL
== END | disposition home or self-care (01) ==
LOC: LABWHC1 10:56 → EDSTATUS 13:18
PROVIDERS: ATTEND Internal Medicine
DX: I12.9 Hypertensive chronic kidney disease with stage 1 through stage 4 chronic kidney disease, or unspecified chronic kidney disease (principal); N18.32 Chronic kidney disease, stage 3b; D63.1 Anemia in chronic kidney disease; N25.81 Secondary hyperparathyroidism of renal origin; E55.9 Vitamin D deficiency, unspecified; N39.0 Urinary tract infection, site not specified; M10.9 Gout, unspecified
CPT/HCPCS: 36415; 80053; 81001; 81050; 82306; 82728; 83540; 83550; 83735; 83970; 84100; 84156; 84550; 85027

== ENCOUNTER → 2022-11-15 | Outpatient (CLI) | payer MEDICARE ==
[2022-11-15 16:59] LABS: ALT 43 U/L (8-44); AST 49 U/L (13-35); Albumin 4.2 d/dL (3.8-4.9); Alkaline Phosphatase 75 U/L (41-126); BUN/Creat Ratio 17.91 Ratio (12.00-20.00); Blood Urea Nitrogen 19.7 mg/dL (9.0-27.0); Calcium 10.1 mg/dL (8.7-10.3); Carbon Dioxide 24.1 mmol/L (21.6-31.8); Chloride 104 mmol/L (96-109); Globulin 2.8 d/dL (1.6-3.3); Glucose 92 mg/dL (70-110); Potassium 4.9 mmol/L (3.5-5.5); Sodium 140 mmol/L (135-145); Total Bilirubin 0.4 mg/dL (0.3-1.2)
== END | disposition home or self-care (01) ==
LOC: LABWHC1 10:56
PROVIDERS: ATTEND Internal Medicine
DX: N18.32 Chronic kidney disease, stage 3b (principal)
CPT/HCPCS: 36415; 80053

== ENCOUNTER → 2023-01-19 | Outpatient (CLI) | payer MEDICARE ==
[2023-01-19 11:17] LABS: HCT 36.9 % (37.2-46.3); HGB 11.9 d/dL (12.0-15.0); MCHC 32.2 d/dL (32.0-37.0); MCV 96.1 FL (80.0-97.0); Mean Platelet Volume 11.5 FL (9.5-12.2); NRBC Per 100 WBC 0 X 10*3/uL (0.00-0.01); Platelet Count 247 X 10*3/uL (140-440); RBC 3.84 X 10*6/uL (4.10-5.20); RDW 13.3 % (11.5-14.5); WBC 8.91 X 10*3/uL (4.50-10.00)
[2023-01-19 11:27] LABS: Albumin 3.9 d/dL (3.8-4.9); Immunoglobulin M 94.2 mg/dL (40.0-280.0); Protein, Total 6.6 d/dL (6.2-8.2)
[2023-01-19 11:40] LABS: % Iron Saturation 26.43 (12.00-45.00); ALT 53 U/L (8-44); AST 37 U/L (13-35); Albumin 4.2 d/dL (3.8-4.9); Albumin/Globulin Ratio 1.68 Ratio (1.60-3.17); Alkaline Phosphatase 95 U/L (41-126); BUN/Creat Ratio 22.62 Ratio (12.00-20.00); Blood Urea Nitrogen 29.4 mg/dL (9.0-27.0); Calcium 9.7 mg/dL (8.7-10.3); Chloride 102 mmol/L (96-109); Globulin 2.5 d/dL (1.6-3.3); Glucose 107 mg/dL (70-110); Iron 83 UG/DL (50-170); Magnesium 1.5 mg/dL (1.5-2.4); Phosphorus 3.8 mg/dL (2.4-5.1); Potassium 4.7 mmol/L (3.5-5.5); Sodium 139 mmol/L (135-145); Total Bilirubin 0.3 mg/dL (0.3-1.2); Total Iron Binding Capacity 314 UG/DL (228-460); Total Protein 6.7 d/dL (6.2-8.2); Uric Acid 5.5 mg/dL (2.9-7.7)
[2023-01-19 17:03] LABS: Appearance,Urine Clear (Clear); Bilirubin,Urine Negative (Negative); Blood,Urine Negative (Negative); Color,Urine Yellow (Yellow); Ketones,Urine Negative (Negative); Nitrite,Urine Negative (Negative); PH, Urine 6.5; Specific Gravity,Urine 1.006 (1.001-1.030); Urobilinogen,Urine 0.2 E.U./DL
[2023-01-20 12:18] LABS: Angiotensin-1 Converting Enz. 30 U/L (8-52)
[2023-01-20 15:24] LABS: Gamma Globulin 1.02 d/dL (0.70-1.50)
[2023-01-20 18:56] LABS: Vitamin D, 1, 25-Dihydroxy 42 pg/mL (20 - 79)
== END | disposition home or self-care (01) ==
LOC: LABWHC1 08:08
PROVIDERS: ATTEND Internal Medicine Nephrology
DX: N25.81 Secondary hyperparathyroidism of renal origin (principal); N18.32 Chronic kidney disease, stage 3b; D63.1 Anemia in chronic kidney disease; E55.9 Vitamin D deficiency, unspecified; M10.9 Gout, unspecified; N39.0 Urinary tract infection, site not specified
CPT/HCPCS: 36415; 80053; 81003; 82164; 82306; 82652; 82728; 83540; 83550; 83735; 83970; 84100; 84165; 84550; 85027; 86334

== ENCOUNTER → 2023-07-20 | Outpatient (CLI) | payer MEDICARE ==
[2023-07-20 16:36] LABS: % Iron Saturation 24.85 (12.00-45.00); ALT 34 U/L (8-44); AST 41 U/L (13-35); Albumin 4.2 g/dL (3.8-4.9); Albumin/Globulin Ratio 1.35 Ratio (1.60-3.17); Alkaline Phosphatase 104 U/L (41-126); Blood Urea Nitrogen 22.2 mg/dL (9.0-27.0); Calcium 10.2 mg/dL (8.7-10.3); Carbon Dioxide 24.1 mmol/L (21.6-31.8); Chloride 100 mmol/L (96-109); Globulin 3.1 g/dL (1.6-3.3); Glucose 99 mg/dL (70-110); Iron 85 UG/DL (50-170); Magnesium 1.9 mg/dL (1.5-2.4); Phosphorus 3.9 mg/dL (2.4-5.1); Potassium 4.9 mmol/L (3.5-5.5); Sodium 136 mmol/L (135-145); Total Bilirubin 0.5 mg/dL (0.3-1.2); Total Iron Binding Capacity 342 UG/DL (228-460); Total Protein 7.3 g/dL (6.2-8.2); Uric Acid 6.3 mg/dL (2.9-7.7)
[2023-07-20 16:38] LABS: HCT 38.9 % (37.2-46.3); HGB 12.6 g/dL (12.0-15.0); MCHC 32.4 g/dL (32.0-37.0); MCV 95.8 FL (80.0-97.0); Mean Platelet Volume 11.1 FL (9.5-12.2); NRBC Per 100 WBC 0 X 10*3/uL (0.00-0.01); Platelet Count 269 X 10*3/uL (140-440); RBC 4.06 X 10*6/uL (4.10-5.20); RDW 13.8 % (11.5-14.5); WBC 9.61 X 10*3/uL (4.50-10.00)
[2023-07-20 18:37] LABS: Appearance,Urine Clear (Clear); Bilirubin,Urine Negative (Negative); Blood,Urine Negative (Negative); Color,Urine Yellow (Yellow); Ketones,Urine Negative (Negative); Nitrite,Urine Negative (Negative); Specific Gravity,Urine 1.005 (1.001-1.030); Urobilinogen,Urine 0.2 E.U./DL
[2023-07-20 18:41] LABS: Bacteria,Urine None Seen (None Seen)
== END | disposition home or self-care (01) ==
LOC: LABWHC1 11:35
PROVIDERS: ATTEND Internal Medicine
DX: E55.9 Vitamin D deficiency, unspecified (principal); N39.0 Urinary tract infection, site not specified; N25.81 Secondary hyperparathyroidism of renal origin; M10.9 Gout, unspecified; N18.32 Chronic kidney disease, stage 3b; D63.1 Anemia in chronic kidney disease
CPT/HCPCS: 36415; 80053; 81001; 82306; 82728; 83540; 83550; 83735; 83970; 84100; 84550; 85027

== ENCOUNTER → 2023-08-05 | Outpatient (CLI) | payer MEDICARE ==
--- NOTE | 2023-08-08 11:38 | MM ---
Reason for Exam: Screening (asymptomatic). Last screening mammogram was performed 12 month(s) ago. Patient History: Menarche at age 16. First Full-Term at age 19. Left ovary removed at age 47. Right ovary removed at age 47. Hysterectomy at age 47. Postmenopausal. Endometrial cancer, age 47. 03/01/2018, Stereotactic Core Biopsy on the Left side. 05/28/2021, Benign Core Biopsy on the right side. Sister had ovarian cancer under age 50. Risk Values: Guera 5 year model risk: 1.7%. NCI Lifetime model risk: 5.0%. Prior Study Comparison: 04/16/2021 Bilateral Screening Mammogram, [facility]. 05/07/2021 Right Diagnostic Mammogram, [facility]. 07/21/2022 Bilateral MG 3D diag mammo w/cad [facility] E[facility]NA, [facility]. Tissue Density: There are scattered areas of fibroglandular density. Findings: Analyzed By CAD. Right breast biopsy clip. Right breast: There is no suspicious group of microcalcifications or new suspicious mass. Benign-appearing calcifications right breast. Left breast: There is no suspicious group of microcalcifications or new suspicious mass. Benign-appearing calcifications left breast. Overall Assessment: Benign, BI-RAD 2 Management: Screening Mammogram of both breasts in [address] [facility] will attempt to contact patient to return for supplemental views and ultrasound if indicated. Patient should continue monthly self-breast exams. A clinical breast exam by your physician is recommended on an annual basis. This exam should not preclude additional follow-up of suspicious palpable abnormalities. Note on Guera scores and lifetime risk: 1. A Guera score greater than 3% is considered moderate risk. If this is the case, consider specialist referral to assess eligibility for a risk reducing agent. 2. If overall lifetime risk for the development of breast cancer is 20% or higher, the patient may qualify for future screening with alternating mammogram and breast MRI. Electronically signed and approved by: Bj Wagner DO
== END | disposition home or self-care (01) ==
LOC: RADMAMWWP 08:07
PROVIDERS: ATTEND Family Medicine
DX: Z12.31 Encounter for screening mammogram for malignant neoplasm of breast (principal); Z78.0 Asymptomatic menopausal state; Z80.41 Family history of malignant neoplasm of ovary
CPT/HCPCS: 77063; 77067

== ENCOUNTER → 2023-08-05 | Outpatient (CLI) | payer MEDICARE ==
[2023-08-05 15:42] LABS: HCT 37.6 % (37.2-46.3); HGB 11.9 g/dL (12.0-15.0); MCH 30.4 pg (27.0-32.0); MCHC 31.6 g/dL (32.0-37.0); MCV 95.9 FL (80.0-97.0); Mean Platelet Volume 10.3 FL (9.5-12.2); NRBC Per 100 WBC 0 X 10*3/uL (0.00-0.01); Platelet Count 239 X 10*3/uL (140-440); RBC 3.92 X 10*6/uL (4.10-5.20); RDW 13.7 % (11.5-14.5); WBC 9.06 X 10*3/uL (4.50-10.00)
[2023-08-05 15:48] LABS: Appearance,Urine Clear (Clear); Bilirubin,Urine Negative (Negative); Blood,Urine Negative (Negative); Color,Urine Yellow (Yellow); Ketones,Urine Negative (Negative); Nitrite,Urine Negative (Negative); Specific Gravity,Urine 1.007 (1.001-1.030); Urobilinogen,Urine 0.2 E.U./DL
[2023-08-05 15:55] LABS: Bacteria,Urine Trace (None Seen)
[2023-08-05 16:07] LABS: Magnesium 1.6 mg/dL (1.5-2.4)
[2023-08-05 16:08] LABS: % Iron Saturation 27.64 (12.00-45.00); ALT 33 U/L (8-44); AST 28 U/L (13-35); Albumin/Globulin Ratio 1.54 Ratio (1.60-3.17); Alkaline Phosphatase 92 U/L (41-126); BUN/Creat Ratio 18.92 Ratio (12.00-20.00); Blood Urea Nitrogen 24.6 mg/dL (9.0-27.0); Calcium 9.3 mg/dL (8.7-10.3); Carbon Dioxide 25.1 mmol/L (21.6-31.8); Chloride 102 mmol/L (96-109); Globulin 2.6 g/dL (1.6-3.3); Glucose 146 mg/dL (70-110); Iron 89 UG/DL (50-170); Phosphorus 3.1 mg/dL (2.4-5.1); Potassium 4.4 mmol/L (3.5-5.5); Sodium 137 mmol/L (135-145); T4, Free (Free Thyroxine) 1.26 ng/dL (0.80-1.80); Total Bilirubin 0.3 mg/dL (0.3-1.2); Total Iron Binding Capacity 322 UG/DL (228-460); Total Protein 6.6 g/dL (6.2-8.2); Uric Acid 6.4 mg/dL (2.9-7.7)
[2023-08-05 19:31] LABS: Total Volume 24 Hour,Urine 2100 mL
== END | disposition home or self-care (01) ==
LOC: LABWHC1 08:22
PROVIDERS: ATTEND Internal Medicine
DX: N25.81 Secondary hyperparathyroidism of renal origin (principal); N18.32 Chronic kidney disease, stage 3b; D63.1 Anemia in chronic kidney disease; M10.9 Gout, unspecified; E03.8 Other specified hypothyroidism; N39.0 Urinary tract infection, site not specified; E55.9 Vitamin D deficiency, unspecified; R80.9 Proteinuria, unspecified
CPT/HCPCS: 36415; 80053; 81001; 81050; 82043; 82306; 82570; 82728; 83540; 83550; 83735; 83970; 84100; 84156; 84439; 84443; 84550; 85027

== ENCOUNTER → 2023-09-21 | Outpatient (CLI) | payer MEDICARE ==
--- NOTE | 2023-09-22 07:26 | XR ---
EXAMINATION TYPE: XR shoulder complete BILAT DATE OF EXAM: 09/21/2023 COMPARISON: NONE HISTORY: Pain TECHNIQUE: Three views of bilateral shoulder are submitted. FINDINGS: The osseous structures are intact. There is no acute fracture or dislocation. Mild osteopenia. Mild hypertrophic change of the AC joint bilaterally.. IMPRESSION: 1. Mild AC joint hypertrophic arthropathy..
== END | disposition home or self-care (01) ==
LOC: RADXRMAIN 15:35
PROVIDERS: ATTEND Nurse Practitioner Family
DX: M19.011 Primary osteoarthritis, right shoulder (principal); M19.012 Primary osteoarthritis, left shoulder

== ENCOUNTER → 2023-09-26 | Outpatient (CLI) | payer MEDICARE ==
[2023-09-26 14:32] LABS: HGB 11.5 g/dL (12.0-15.0); MCH 31.1 pg (27.0-32.0); MCHC 31.9 g/dL (32.0-37.0); MCV 97.3 FL (80.0-97.0); NRBC Per 100 WBC 0 X 10*3/uL (0.00-0.01); Platelet Count 240 X 10*3/uL (140-440); RDW 13.2 % (11.5-14.5); WBC 10.02 X 10*3/uL (4.50-10.00)
[2023-09-26 14:51] LABS: Appearance,Urine Clear (Clear); Bilirubin,Urine Negative (Negative); Blood,Urine Negative (Negative); Color,Urine Yellow (Yellow); Ketones,Urine Negative (Negative); Nitrite,Urine Negative (Negative); PH, Urine 6.5; Specific Gravity,Urine 1.005 (1.001-1.030); Urobilinogen,Urine 0.2 E.U./DL
[2023-09-26 14:58] LABS: Bacteria,Urine Trace (None Seen)
[2023-09-26 15:03] LABS: % Iron Saturation 27.08 (12.00-45.00); ALT 30 U/L (8-44); AST 25 U/L (13-35); Albumin 3.8 g/dL (3.8-4.9); Albumin/Globulin Ratio 1.58 Ratio (1.60-3.17); Alkaline Phosphatase 96 U/L (41-126); BUN/Creat Ratio 16.17 Ratio (12.00-20.00); Blood Urea Nitrogen 19.4 mg/dL (9.0-27.0); Calcium 9.1 mg/dL (8.7-10.3); Carbon Dioxide 26.7 mmol/L (21.6-31.8); Chloride 101 mmol/L (96-109); Globulin 2.4 g/dL (1.6-3.3); Glucose 82 mg/dL (70-110); Iron 78 UG/DL (50-170); Magnesium 1.6 mg/dL (1.5-2.4); Phosphorus 3.1 mg/dL (2.4-5.1); Potassium 5.1 mmol/L (3.5-5.5); Sodium 138 mmol/L (135-145); Total Bilirubin 0.3 mg/dL (0.3-1.2); Total Iron Binding Capacity 288 UG/DL (228-460); Total Protein 6.2 g/dL (6.2-8.2); Uric Acid 6.3 mg/dL (2.9-7.7)
[2023-09-26 21:19] LABS: Urine Creatinine 22.5 mg/dL (28.0-217.0)
== END | disposition home or self-care (01) ==
LOC: LABWHC1 09:21
PROVIDERS: ATTEND Internal Medicine
DX: N18.32 Chronic kidney disease, stage 3b (principal)
CPT/HCPCS: 36415; 80053; 81001; 82043; 82306; 82570; 82728; 83540; 83550; 83735; 83970; 84100; 84550; 85027

== ENCOUNTER 2023-10-05 01:05 | Emergency (ER) | payer MEDICARE ==
[2023-10-05 01:09] VITALS: TEMP 97.3
[2023-10-05 01:47] LABS: Basophils # (A) 0.1 k/uL (0-0.2); Basophils % (A) 1 %; Eosinophils # (A) 0.5 k/uL (0-0.7); Eosinophils % (A) 5 %; HCT 33.8 % (34.0-46.0); HGB 11.2 gm/dL (11.4-16.0); Lymphocytes # (A) 3.1 k/uL (1.0-4.8); Lymphocytes % (A) 32 %; MCHC 33.1 g/dL (31.0-37.0); MCV 93.5 fL (80.0-100.0); Mean Platelet Volume 7.1; Monocytes # (A) 0.7 k/uL (0-1.0); Monocytes % (A) 7 %; Neutrophils % (A) 52 %; Platelet Count 344 k/uL (150-450); RBC 3.62 m/uL (3.80-5.40); WBC 9.6 k/uL (3.8-10.6)
[2023-10-05] MEDS: methylPREDNISolone SOD SUCCI 125 MG/2 ML VIAL IV STA (01:59)
[2023-10-05 02:02] LABS: ALT 33 U/L (4-34); AST 47 U/L (14-36); African American GFR (CKD) 53 (>60 ml/min/1.73 sqM); Albumin 3.5 g/dL (3.5-5.0); Alkaline Phosphatase 78 U/L (38-126); Anion Gap 11 mmol/L; Blood Urea Nitrogen 19 mg/dL (7-17); Calcium 8.8 mg/dL (8.4-10.2); Carbon Dioxide 21 mmol/L (22-30); Chloride 93 mmol/L (98-107); Glucose 94 mg/dL (74-99); Magnesium 1.4 mg/dL (1.6-2.3); Non-African American GFR(CKD) 46 (>60 ml/min/1.73 sqM); Potassium 4.3 mmol/L (3.5-5.1); Sodium 125 mmol/L (137-145); Total Bilirubin 0.6 mg/dL (0.2-1.3); Total Protein 6.1 g/dL (6.3-8.2)
[2023-10-05] MEDS: IPRATROPIUM-ALBUTEROL 3 ML NEB INHALATION STA (02:11)
[2023-10-05 02:33] LABS: INR 0.9 (<1.2); Partial Thromboplastin Time 33.5 sec (22.0-30.0); Prothrombin Time 9.9 sec (10.0-12.5)
--- NOTE | 2023-10-05 02:33 | XR ---
EXAM: XR Chest, 2 Views CLINICAL HISTORY: ITS.REASON XR Reason: Chest Pain TECHNIQUE: Frontal and lateral views of the chest. COMPARISON: 09/22/2018 FINDINGS: Lungs: No consolidation or mass. Slightly prominent interstitial markings. Pleural space: No effusion. Heart: Unchanged. Bones/joints: No acute findings. IMPRESSION: Slightly prominent interstitial markings.
[2023-10-05 03:15] VITALS: RESP 16
[2023-10-05 03:22] LABS: Appearance,Urine Clear (Clear); Bilirubin,Urine Negative (Negative); Blood,Urine Negative (Negative); Color,Urine Colorless; Glucose,Urine (UA) Negative (Negative); Ketones,Urine Negative (Negative); Leukocyte Esterase,Urine Negative (Negative); Nitrite,Urine Negative (Negative); PH, Urine 6.5 (5.0-8.0); Protein,Urine Negative (Negative); Specific Gravity,Urine 1.003 (1.001-1.035); Urobilinogen,Urine <2.0 mg/dL (<2.0)
[2023-10-05] MEDS: SODIUM CHLORIDE 0.9% 1,000 ML BAG IV STA (03:42)
--- NOTE | 2023-10-05 03:45 | ED ---
Chest Pain HPI - General Chief Complaint: Chest Pain Stated Complaint: Chest pain, RHONDA Time Seen by Provider: 10/05/23 01:14 Source: patient, RN notes reviewed Mode of arrival: ambulatory Limitations: no limitations - History of Present Illness Initial Comments: 22-year-old female presenting to the ED with chief complaint of cough. Patient reports for the past week has had nonproductive cough with congestion reports feeling short of breath secondary to this. Today notes development of pain of her chest which is worse with deep breath movement. Denies fever. Has had no prior cardiac history. No other complaints at this time. - Related Data Home Medications Medication Instructions Recorded Confirmed Levothyroxine Sodium [Synthroid] 25 mcg PO DAILY 05/13/14 09/24/22 lamoTRIgine [LaMICtal] 150 mg PO DAILY 12/19/15 09/24/22 Docusate [Colace] 100 mg PO Q48H 05/07/21 09/24/22 Latanoprost/Pf [Latanoprost 0.005% 1 drop BOTH EYES HS 05/07/21 09/24/22 Eye Drop] Metoprolol Succinate (ER) [Toprol 50 mg PO BID 05/07/21 09/24/22 XL] allopurinoL [Zyloprim] 100 mg PO DAILY 05/07/21 09/24/22 Famotidine [Pepcid] 40 mg PO DAILY 09/24/22 09/24/22 Numaqula 1 cap PO DAILY 09/24/22 09/24/22 Tolterodine ER [Detrol LA] 4 mg PO DAILY 09/24/22 09/24/22 buPROPion XL [Wellbutrin XL] 150 mg PO DAILY 09/24/22 09/24/22 Previous Rx's Medication Instructions Recorded Albuterol Inhaler [Ventolin Hfa 1 - 2 puff INHALATION Q6H PRN #1 10/05/23 Inhaler] each predniSONE 10 mg PO DIRECTED #20 tab 10/05/23 Allergies Allergy/AdvReac Type Severity Reaction Status Date / Time amlodipine besylate Allergy foot Verified 10/05/23 01:09 [From Norvasc] swelling, rectal bleeding aripiprazole [From Abilify] AdvReac Hallucinati Verified 10/05/23 01:09 ons furosemide [From Lasix] AdvReac Nausea & Verified 10/05/23 01:09 Vomiting hydrochlorothiazide AdvReac Swelling Verified 10/05/23 01:09 Review of Systems ROS Statement: Those systems with pertinent positive or pertinent negative responses have been documented in the HPI. ROS Other: All systems not noted in ROS Statement are negative. Past Medical History Past Medical History: Cancer, GERD/Reflux, Hypertension, Osteoarthritis (OA), Thyroid Disorder Additional Past Medical History / Comment(s): "dr watching kidneys-not sure why", gout, hx cervical cancer History of Any Multi-Drug Resistant Organisms: None Reported Past Surgical History: Bladder Surgery, Hysterectomy, Orthopedic Surgery Additional Past Surgical History / Comment(s): bilat carpal tunnel, bladder suspension, ORIF rt ankle, Past Anesthesia/Blood Transfusion Reactions: No Reported Reaction Past Psychological History: Anxiety, Bipolar, Depression Smoking Status: Former smoker Past Alcohol Use History: Occasional Past Drug Use History: None Reported - Past Family History Sister(s) Family Medical History: Cancer General Exam Limitations: no limitations General appearance: alert, in no apparent distress Eye exam: Present: normal appearance Neck exam: Present: normal inspection Respiratory exam: Present: wheezes, chest wall tenderness (Reproducible chest wall tenderness). Absent: respiratory distress, accessory muscle use Cardiovascular Exam: Present: regular rate, normal rhythm GI/Abdominal exam: Present: soft Back exam: Present: normal inspection Neurological exam: Present: alert, oriented X3 Skin exam: Present: warm, dry Course Vital Signs 10/05/23 10/05/23 10/05/23 01:06 02:11 02:30 Temperature 97.3 F L Pulse Rate 75 65 68 Respiratory 22 Rate Blood Pressure 155/72 O2 Sat by Pulse 95 Oximetry 10/05/23 10/05/23 03:13 03:53 Temperature Pulse Rate 67 Respiratory 16 Rate Blood Pressure 161/72 O2 Sat by Pulse 94 L 97 Oximetry Chest Pain MDM - MDM Was pt. sent in by a medical professional or institution (, PA, ENTERPRISE SYSTEMS ADMINISTRATOR, urgent care, hospital, or jail...) When possible be specific @ -No Did you speak to anyone other than the patient for history (EMS, parent, family, police, friend...)? What history was obtained from this source @ -Spoke to the patient's at bedside who reports that he had bronchitis last week and states that "I gave it to her" Did you review nursing and triage notes (agree or disagree)? Why? @ -I reviewed and agree with nursing and triage notes Were old charts reviewed (outside hosp., previous admission, EMS record, old EKG, old radiological studies, urgent care reports/EKG's, jail records)? Report findings @ -No old charts were reviewed Differential Diagnosis (chest pain, altered mental status, abdominal pain women, abdominal pain men, vaginal bleeding, weakness, fever, dyspnea, syncope, headache, dizziness, GI bleed, back pain, seizure, CVA, palpatations, mental health, musculoskeletal)? @ -Differential Chest Pain: Stable Angina, Unstable Angina, STEMI, NSTEMI Aortic Dissection, Pneumothorax, Musculoskeletal, Esophageal Spasm GERD, Cholecystitis, Pancreatitis, Zoster, this is not meant to be an all-inclusive list. Differential Dyspnea: Coronary syndrome, arrhythmia, tamponade, asthma, COPD, pulmonary embolism, pneumonia, pneumothorax, pulmonary effusion, anaphylaxis, diabetic ketoacidosis, flailed chest, pulmonary contusion, diaphragmatic rupture, anemia, neuromuscular, this is not meant to be an all-inclusive list. EKG interpreted by me (3pts min.). @ -EKG interpreted me showing a sinus rhythm without acute ST or T wave changes. Rate of 72 bpm, ME 163, QRS 89, QT/QTc 377/41. X-rays interpreted by me (1pt min.). @ -Chest x-ray interpreted me showing slightly prominent interstitial markings otherwise no acute process. CT interpreted by me (1pt min.). @ -None done U/S interpreted by me (1pt. min.). @ -None done What testing was considered but not performed or refused? (CT, X-rays, U/S, labs)? Why? @ -None What meds were considered but not given or refused? Why? @ -None Did you discuss the management of the patient with other professionals (pr ofessionals i.e. , PA, ENTERPRISE SYSTEMS ADMINISTRATOR, lab, RT, psych nurse, social studies teacher, criminal lawyer, teacher, sea air land officer, case consultant)? Give summary @ -No Was smoking cessation discussed for >3mins.? @ -No Was critical care preformed (if so, how long)? @ -No Were there social determinants of health that impacted care today? How? (Homelessness, low income, unemployed, alcoholism, drug addiction, transportation, low edu. Level, literacy, decrease access to med. care, skilled nursing, rehab)? @ -No Was there de-escalation of care discussed even if they declined (Discuss DNR or withdrawal of care, Hospice)? DNR status @ -No What co-morbidities impacted this encounter? (DM, HTN, Smoking, COPD, CAD, Cancer, CVA, ARF, Chemo, Hep., AIDS, mental health diagnosis, sleep apnea, morbid obesity)? @ -None Was patient admitted / discharged? Hospital course, mention meds given and route, prescriptions, significant lab abnormalities, going to OR and other pertinent info. @ -Discharge 72-year-old female presenting to the ED with complaints of cough and congestion for the past week with development of chest pain especially with movement and deep breath today. Family does note sick contact as he had bronchitis last week. Laboratory studies reviewed. CBC largely unremarkable. Chemistry panel does show some hyponatremia 125 otherwise largely unremarkable. Urine shows no evidence of infection. Serology panel unremarkable. Chest x-ray showed no evidence of acute infiltrates. Patient was provided breathing treatment and steroids here and reported feeling improvement with this. Patient discharged home in stable condition. Saturating at 95 to 96% on room air. Symptoms likely viral in nature. Provided prescription for inhaler and steroids. Advise close follow-up as scheduled with her PCP on Tuesday. Undiagnosed new problem with uncertain prognosis? @ -No Drug Therapy requiring intensive monitoring for toxicity (Heparin, Nitro, Insulin, Cardizem)? @ -No Were any procedures done? @ -No Diagnosis/symptom? @ -Viral URI Acute, or Chronic, or Acute on Chronic? @ -Acute Uncomplicated (without systemic symptoms) or Complicated (systemic symptoms)? @ -Complicated Side effects of treatment? @ -No Exacerbation, Progression, or Severe Exacerbation? @ -No Poses a threat to life or bodily function? How? (Chest pain, [place], [place], pneumonia, PE, COPD, DKA, ARF, appy, cholecystitis, CVA, Diverticulitis, Homicidal, Suicidal, threat to staff... and all critical care pts) @ -Unlikely Disposition Clinical Impression: Viral URI Disposition: HOME SELF-CARE Condition: Good Instructions (If sedation given, give patient instructions): Costochondritis (ED), Acute Bronchitis (ED) Prescriptions: predniSONE 10 mg PO DIRECTED #20 tab Albuterol Inhaler [Ventolin Hfa Inhaler] 1 - 2 puff INHALATION Q6H PRN #1 each PRN Reason: Dyspnea Is patient prescribed a controlled substance at d/c from ED?: No Referrals: Alfie Lu DO [Primary Care Provider] - 1-2 days Time of Disposition: 03:57
[2023-10-05] MEDS: KETOROLAC 15 MG/ML 1 ML VIAL IVP STA (03:54)
[2023-10-05 04:36] VITALS: BP 155/70; PULSE 68
== END 2023-10-05 04:35 | disposition home or self-care (01) ==
LOC: EC 01:05
DX: J06.9 Acute upper respiratory infection, unspecified (principal); E87.1 Hypo-osmolality and hyponatremia; R07.89 Other chest pain; Z88.2 Allergy status to sulfonamides; Z88.8 Allergy status to other drugs, medicaments and biological substances; Z87.891 Personal history of nicotine dependence
CPT/HCPCS: 36415; 94640; 93005; 80053; 83735; 84484; 85025; 85610; 85730; 81003; 87636; 71046; 99285; 96374; 96375; 96361; J1885; J2919

== ENCOUNTER 2023-10-08 00:04 | Emergency (ER) | payer MEDICARE ==
[2023-10-08 00:50] VITALS: RESP 18
[2023-10-08] MEDS: ACETAMINOPHEN TAB 500 MG TAB PO STA (01:09)
[2023-10-08] MEDS: LORazepam 2 MG/ML INJ IV STA (01:10)
[2023-10-08] MEDS: LABETALOL 5 MG/ML VIAL MDV IVP STA (01:12)
[2023-10-08 02:10] VITALS: BP 123/58; PULSE 67; TEMP 98
--- NOTE | 2023-10-08 02:11 | ED ---
Headache HPI - General Chief Complaint: Headache Stated Complaint: High BP Time Seen by Provider: 10/08/23 00:19 Mode of arrival: ambulatory Limitations: no limitations - History of Present Illness Initial Comments: 72-year-old female presenting with chief complaint of elevated blood pressure and headache. She was checking her blood pressure tonight as she does regularly and it was noted to be in the 190 systolic range. Patient is also endorsing a frontal headache. Patient is on losartan, metoprolol, and hydralazine, she takes all medications as prescribed. She states that she is currently on prednisone for bronchitis. She states that since starting that she has been jittery. She was seen at her PCPs office today and they explained to her that steroids can cause that side effect. Patient is quite anxious and feels uncomfortable due to this jittery feeling. She denies any chest pain, difficulty breathing, abdominal pain, nausea, vomiting, vision or hearing moreno es, numbness, tingling, weakness. - Related Data Home Medications Medication Instructions Recorded Confirmed Levothyroxine Sodium [Synthroid] 25 mcg PO DAILY 05/13/14 09/24/22 lamoTRIgine [LaMICtal] 150 mg PO DAILY 12/19/15 09/24/22 Docusate [Colace] 100 mg PO Q48H 05/07/21 09/24/22 Latanoprost/Pf [Latanoprost 0.005% 1 drop BOTH EYES HS 05/07/21 09/24/22 Eye Drop] Metoprolol Succinate (ER) [Toprol 50 mg PO BID 05/07/21 09/24/22 XL] allopurinoL [Zyloprim] 100 mg PO DAILY 05/07/21 09/24/22 Famotidine [Pepcid] 40 mg PO DAILY 09/24/22 09/24/22 Numaqula 1 cap PO DAILY 09/24/22 09/24/22 Tolterodine ER [Detrol LA] 4 mg PO DAILY 09/24/22 09/24/22 buPROPion XL [Wellbutrin XL] 150 mg PO DAILY 09/24/22 09/24/22 Previous Rx's Medication Instructions Recorded Albuterol Inhaler [Ventolin Hfa 1 - 2 puff INHALATION Q6H PRN #1 10/05/23 Inhaler] each predniSONE 10 mg PO DIRECTED #20 tab 10/05/23 Allergies Allergy/AdvReac Type Severity Reaction Status Date / Time amlodipine besylate Allergy foot Verified 10/05/23 01:09 [From Norvasc] swelling, rectal bleeding aripiprazole [From Abilify] AdvReac Hallucinati Verified 10/05/23 01:09 ons furosemide [From Lasix] AdvReac Nausea & Verified 10/05/23 01:09 Vomiting hydrochlorothiazide AdvReac Swelling Verified 10/05/23 01:09 Review of Systems ROS Statement: Those systems with pertinent positive or pertinent negative responses have been documented in the HPI. ROS Other: All systems not noted in ROS Statement are negative. Past Medical History Past Medical History: Cancer, GERD/Reflux, Hypertension, Osteoarthritis (OA), Thyroid Disorder Additional Past Medical History / Comment(s): "dr watching kidneys-not sure why", gout, hx cervical cancer History of Any Multi-Drug Resistant Organisms: None Reported Past Surgical History: Bladder Surgery, Hysterectomy, Orthopedic Surgery Additional Past Surgical History / Comment(s): bilat carpal tunnel, bladder suspension, ORIF rt ankle, Past Anesthesia/Blood Transfusion Reactions: No Reported Reaction Past Psychological History: Anxiety, Bipolar, Depression Smoking Status: Former smoker Past Alcohol Use History: Occasional Past Drug Use History: None Reported - Past Family History Sister(s) Family Medical History: Cancer General Exam Limitations: no limitations General appearance: alert, in no apparent distress Head exam: Present: atraumatic, normocephalic Eye exam: Present: normal appearance, EOMI Neck exam: Present: normal inspection. Absent: meningismus Respiratory exam: Present: normal lung sounds bilaterally. Absent: respiratory distress, wheezes, rales, rhonchi, stridor Cardiovascular Exam: Present: normal rhythm, tachycardia, normal heart sounds. Absent: systolic murmur, diastolic murmur, rubs, gallop, clicks Extremities exam: Absent: pedal edema Neurological exam: Present: alert, oriented X3 Psychiatric exam: Present: normal affect, normal mood Skin exam: Present: warm, dry Course Vital Signs 10/08/23 10/08/23 10/08/23 00:05 00:30 01:30 Temperature 97.9 F Pulse Rate 104 H 75 70 Respiratory 16 18 18 Rate Blood Pressure 194/88 157/72 146/70 O2 Sat by Pulse 97 98 96 Oximetry 10/08/23 02:09 Temperature 98.0 F Pulse Rate 67 Respiratory 18 Rate Blood Pressure 123/58 O2 Sat by Pulse 95 Oximetry Medical Decision Making - Medical Decision Making Was pt. sent in by a medical professional or institution ([facility], VENDING MACHINE HOST/HOSTESS, urgent care, hospital, or fpc...) When possible be specific @ -No Did you speak to anyone other than the patient for history (EMS, parent, family, police, friend...)? What history was obtained from this source @ -No Did you review nursing and triage notes (agree or disagree)? Why? @ -I reviewed and agree with nursing and triage notes Were old charts reviewed (outside hosp., previous admission, EMS record, old EKG, old radiological studies, urgent care reports/EKG's, fpc records)? Report findings @ -No old charts were reviewed Differential Diagnosis (chest pain, altered mental status, abdominal pain women, abdominal pain men, vaginal bleeding, weakness, fever, dyspnea, syncope, headache, dizziness, GI bleed, back pain, seizure, CVA, palpatations, mental health, musculoskeletal)? @ -Differential includes idiopathic hypertension, anxiety, ACS, CVA, this is not an all-inclusive list EKG interpreted by me (3pts min.). @ -EKG shows sinus rhythm ventricular rate 71. OH interval 162. QRS 84. QT 367. QTc 390. X-rays interpreted by me (1pt min.). @ -None done CT interpreted by me (1pt min.). @ -None done U/S interpreted by me (1pt. min.). @ -None done What testing was considered but not performed or refused? (CT, X-rays, U/S, labs)? Why? @ -None What meds were considered but not given or refused? Why? @ -Initially labetalol was ordered, however on prompt reassessment the patient's blood pressure had improved and labetalol was held Did you discuss the management of the patient with other professionals (professionals i.e. [employer] [facility], VENDING MACHINE HOST/HOSTESS, lab, RT, psych nurse, social insurance analyst, paint technician, teacher, correction officer reformatory, protective services case worker)? Give summary @ -No Was smoking cessation discussed for >3mins.? @ -No Was critical care preformed (if so, how long)? @ -No Were there social determinants of health that impacted care today? How? (Homelessness, low income, unemployed, alcoholism, drug addiction, transportation, low edu. Level, literacy, decrease access to med. care, intermediate, rehab)? @ -No Was there de-escalation of care discussed even if they declined (Discuss DNR or withdrawal of care, Hospice)? DNR status @ -No What co-morbidities impacted this encounter? (DM, HTN, Smoking, COPD, CAD, Cancer, CVA, ARF, Chemo, Hep., AIDS, mental health diagnosis, sleep apnea, morbid obesity)? @ -None Was patient admitted / discharged? Hospital course, mention meds given and route, prescriptions, significant lab abnormalities, going to OR and other pertinent info. @ -72-year-old female presenting with chief complaint of hypertension and headache. Patient endorses a frontal headache. She noticed her blood pressure was elevated this evening. She is currently on prednisone for bronchitis and has been feeling anxious since starting this. Initially the patient is hypertensiveWith blood pressure of 194/88. She is tearful and very anxious. Blood pressure recheck her pressure has improved to 157/72 without any medication. Patient is given Ativan for anxiety and Tylenol for her headache. On reassessment she reports significant improvement in her symptoms. She feels much better. Blood pressure is stable. Her symptoms were likely attributed to feeling of anxiety induced by her steroids tapered. Discharged home. Follow-up with PCP. Report back to ER with any new or worsening symptoms. Discussed return parameters and answered all questions. Patient conveyed verbal understanding and agreed to the plan. I discussed this case in detail with my attending Dr. Mcdaniel Undiagnosed new problem with uncertain prognosis? @ -No Drug Therapy requiring intensive monitoring for toxicity (Heparin, Nitro, Insulin, Cardizem)? @ -No Were any procedures done? @ -No Diagnosis/symptom? @ -Hypertensive urgency, anxiety Acute, or Chronic, or Acute on Chronic? @ -Acute Uncomplicated (without systemic symptoms) or Complicated (systemic symptoms)? @ -Complicated Side effects of treatment? @ -No Exacerbation, Progression, or Severe Exacerbation? @ -No Poses a threat to life or bodily function? How? (Chest pain, USA, RI, pneumonia, PE, COPD, DKA, ARF, appy, cholecystitis, CVA, Diverticulitis, Homicidal, Suicidal, threat to staff... and all critical care pts) @ -Prolonged untreated hypertension results and increased risk of RI, CVA, etc. Stressed importance of follow-up with PCP Disposition Clinical Impression: Hypertensive urgency Disposition: HOME SELF-CARE Condition: Good Instructions (If sedation given, give patient instructions): Acute Headache (ED), Hypertensive Crisis (ED) Additional Instructions: Follow-up with PCP. Report back to ER with any new or worsening symptoms. Is patient prescribed a controlled substance at d/c from ED?: No Referrals: Alfie Lu DO [Primary Care Provider] - 1-2 days Time of Disposition: 02:11
== END 2023-10-08 02:09 | disposition home or self-care (01) ==
LOC: EC 00:04
DX: I16.0 Hypertensive urgency (principal); F41.9 Anxiety disorder, unspecified; R00.0 Tachycardia, unspecified; Z79.899 Other long term (current) drug therapy; Z88.2 Allergy status to sulfonamides; Z88.8 Allergy status to other drugs, medicaments and biological substances; Z87.891 Personal history of nicotine dependence
CPT/HCPCS: 93005; 99284; 96374; J2060

== ENCOUNTER → 2024-01-09 | Outpatient (CLI) | payer MEDICARE ==
[2024-01-09 15:37] LABS: HCT 34.5 % (37.2-46.3); HGB 11.1 g/dL (12.0-15.0); MCH 31.1 pg (27.0-32.0); MCHC 32.2 g/dL (32.0-37.0); MCV 96.6 FL (80.0-97.0); Mean Platelet Volume 11.3 FL (9.5-12.2); NRBC Per 100 WBC 0 X 10*3/uL (0.00-0.01); Platelet Count 257 X 10*3/uL (140-440); RBC 3.57 X 10*6/uL (4.10-5.20); RDW 13.5 % (11.5-14.5); WBC 10.88 X 10*3/uL (4.50-10.00)
[2024-01-09 16:14] LABS: % Iron Saturation 16.83 (12.00-45.00); ALT 37 U/L (8-44); AST 32 U/L (13-35); Albumin 4.2 g/dL (3.8-4.9); Alkaline Phosphatase 85 U/L (41-126); BUN/Creat Ratio 20.62 Ratio (12.00-20.00); Blood Urea Nitrogen 26.8 mg/dL (9.0-27.0); Calcium 10.3 mg/dL (8.7-10.3); Chloride 101 mmol/L (96-109); Ferritin 76.2 ng/mL (10.0-291.0); Globulin 2.8 g/dL (1.6-3.3); Glucose 103 mg/dL (70-110); Iron 53 UG/DL (50-170); Magnesium 1.5 mg/dL (1.5-2.4); Phosphorus 3.8 mg/dL (2.4-5.1); Potassium 4.7 mmol/L (3.5-5.5); Sodium 137 mmol/L (135-145); Total Bilirubin 0.4 mg/dL (0.3-1.2); Total Iron Binding Capacity 315 UG/DL (228-460); Uric Acid 6.1 mg/dL (2.9-7.7)
[2024-01-09 18:06] LABS: Appearance,Urine Clear (Clear); Bilirubin,Urine Negative (Negative); Blood,Urine Negative (Negative); Color,Urine Yellow (Yellow); Ketones,Urine Negative (Negative); Nitrite,Urine Negative (Negative); Specific Gravity,Urine 1.007 (1.001-1.030); Urobilinogen,Urine 0.2 E.U./DL
[2024-01-09 20:39] LABS: Urine Creatinine 22.1 mg/dL (28.0-217.0)
== END | disposition home or self-care (01) ==
LOC: LABWHC1 11:52
PROVIDERS: ATTEND Nurse Practitioner Family
DX: N18.32 Chronic kidney disease, stage 3b (principal); D63.1 Anemia in chronic kidney disease; N39.0 Urinary tract infection, site not specified; E55.9 Vitamin D deficiency, unspecified; N25.81 Secondary hyperparathyroidism of renal origin; M10.9 Gout, unspecified; R80.9 Proteinuria, unspecified
CPT/HCPCS: 36415; 80053; 81003; 82043; 82306; 82570; 82728; 83540; 83550; 83735; 83970; 84100; 84550; 85027

== ENCOUNTER → 2024-01-19 | Outpatient (CLI) | payer MEDICARE | END | disposition home or self-care (01) | LOC: LABWHC1 11:27 | PROVIDERS: ATTEND Nurse Practitioner Adult Health | DX: Z53.9 Procedure and treatment not carried out, unspecified reason (principal) ==

== ENCOUNTER → 2024-01-20 | Outpatient (CLI) | payer MEDICARE ==
[2024-01-20 15:20] LABS: ALT 27 U/L (8-44); AST 28 U/L (13-35); Albumin 3.9 g/dL (3.8-4.9); Albumin/Globulin Ratio 1.44 Ratio (1.60-3.17); Alkaline Phosphatase 100 U/L (41-126); Blood Urea Nitrogen 28.6 mg/dL (9.0-27.0); Calcium 9.6 mg/dL (8.7-10.3); Carbon Dioxide 22.6 mmol/L (21.6-31.8); Chloride 98 mmol/L (96-109); Globulin 2.7 g/dL (1.6-3.3); Glucose 102 mg/dL (70-110); Potassium 5.2 mmol/L (3.5-5.5); Sodium 131 mmol/L (135-145); Total Bilirubin 0.4 mg/dL (0.3-1.2); Total Protein 6.6 g/dL (6.2-8.2)
== END | disposition home or self-care (01) ==
LOC: LABWHC1 08:38
PROVIDERS: ATTEND Nurse Practitioner Adult Health
CPT/HCPCS: 36415; 80053; 80175

== ENCOUNTER → 2024-02-01 | Outpatient (CLI) | payer MEDICARE ==
[2024-02-01 21:38] LABS: ALT 28 U/L (8-44); AST 31 U/L (13-35); Albumin 4.1 g/dL (3.8-4.9); Albumin/Globulin Ratio 1.37 Ratio (1.60-3.17); Alkaline Phosphatase 98 U/L (41-126); BUN/Creat Ratio 16.88 Ratio (12.00-20.00); Calcium 10.2 mg/dL (8.7-10.3); Carbon Dioxide 22.8 mmol/L (21.6-31.8); Chloride 101 mmol/L (96-109); Glucose 115 mg/dL (70-110); Potassium 4.7 mmol/L (3.5-5.5); Sodium 137 mmol/L (135-145); Total Bilirubin 0.4 mg/dL (0.3-1.2); Total Protein 7.1 g/dL (6.2-8.2)
== END | disposition home or self-care (01) ==
LOC: LABWHC1 13:25
PROVIDERS: ATTEND Nurse Practitioner Family
DX: N18.32 Chronic kidney disease, stage 3b (principal)
CPT/HCPCS: 36415; 80053

== ENCOUNTER → 2024-02-15 | Outpatient (CLI) | payer MEDICARE, OTHER ==
--- NOTE | 2024-02-15 10:50 | XR ---
EXAMINATION TYPE: XR ribs LT w pa chest xray DATE OF EXAM: 02/15/2024 COMPARISON: 10/05/2023 HISTORY: Pain TECHNIQUE: Frontal view of the chest and 4 views of left ribs submitted FINDINGS: Near density in the left midlung likely related to scarring or atelectasis. Otherwise lungs are clear. No pleural effusion or pneumothorax. Heart size normal. Atherosclerotic change aorta. Mil d AC joint arthropathy. No acute displaced rib fracture. IMPRESSION: No acute displaced rib fracture. [facility], , 02/15/2024 10:47 AM
== END | disposition home or self-care (01) ==
LOC: RADXRMAIN 09:19
PROVIDERS: ATTEND Family Medicine
DX: R07.81 Pleurodynia (principal)

== ENCOUNTER → 2024-08-01 | Outpatient (CLI) | payer MEDICARE, OTHER ==
[2024-08-01 15:20] LABS: C Reactive Protein 4.4 mg/dL (0.00-0.80)
== END | disposition home or self-care (01) ==
LOC: LABWHC1 09:15
PROVIDERS: ATTEND Family Medicine
DX: M54.9 Dorsalgia, unspecified (principal); M79.641 Pain in right hand; M79.642 Pain in left hand
CPT/HCPCS: 36415; 85652; 86038; 86140; 86431

== ENCOUNTER → 2024-09-18 | Outpatient (CLI) | payer MEDICARE, OTHER ==
--- NOTE | 2024-09-18 12:04 | CT ---
INDICATION: Patient age:Female; 73 years old; Reason for study: I77.82; [facility]. COMPARISON: Chest radiograph 02/15/2024 TECHNIQUE: Multiple thin axial images were obtained through the chest at selected intervals. Prone and supine in spiratory along with supine expiratory images were submitted for review. Please note that due to inte rval acquisition images as defined by high-resolution CT protocol the entire lung parenchyma is not e valuated, therefore small nodular densities may not be visualized. Evaluation of vascular structures , viscera and lymphatics is limited due to lack of intravenous contrast administration. One or more C T dose reduction strategies were utilized during this examination. Total DLP 465.30 mGycm. FINDINGS: LUNGS: There is no evidence of interstitial thickening, significant groundglass opacity, honeycombing or architectural distortion in the lungs. No bronchiectasis. No significant expiratory air trapping. No acute area of infiltrative or consolidative change. LARGE AIRWAYS: Central airways are patent. No dynamic airway collapse on expiratory imaging. PLEURA: No pleural effusion or thickening. HEART AND PERICARDIUM: Heart is normal in size. There is no pericardial effusion. Mild coronary arter y calcifications present. MEDIASTINUM AND TADEO: No mediastinal or hilar lymphadenopathy or soft tissue mass. VESSELS: The thoracic aorta is normal in course and caliber. Atherosclerotic calcification of the ao rta and its branches. CHEST WALL AND DIAPHRAGM: Normal. LOWER NECK: Normal. UPPER ABDOMEN: Unremarkable. MUSCULOSKELETAL: No acute fracture. IMPRESSION: No evidence for interstitial lung disease. [facility] [place], , 09/18/2024 12:02 PM
== END | disposition home or self-care (01) ==
LOC: RADCTMAIN 11:36
PROVIDERS: ATTEND Internal Medicine Rheumatology
DX: I77.82 Antineutrophilic cytoplasmic antibody [ANCA] vasculitis (principal)
CPT/HCPCS: 71250

== ENCOUNTER → 2024-09-21 | Outpatient (CLI) | payer MEDICARE, OTHER ==
[2024-09-21 19:22] LABS: Appearance,Urine Clear (Clear); Bilirubin,Urine Negative (Negative); Blood,Urine Negative (Negative); Color,Urine Yellow (Yellow); Ketones,Urine Negative (Negative); Nitrite,Urine Negative (Negative); PH, Urine 6.5; Specific Gravity,Urine 1.006 (1.001-1.030); Urobilinogen,Urine 0.2 E.U./DL
[2024-09-21 21:10] LABS: Bacteria,Urine None Seen (None Seen)
[2024-09-21 21:24] LABS: Urine Creatinine 17.2 mg/dL (28.0-217.0)
[2024-09-21 22:31] LABS: Total Volume 24 Hour,Urine 2200 mL
== END | disposition home or self-care (01) ==
LOC: LABWHC1 11:59
PROVIDERS: ATTEND Internal Medicine
DX: N18.32 Chronic kidney disease, stage 3b (principal)
CPT/HCPCS: 81001; 81050; 82043; 82570; 84156

== ENCOUNTER → 2024-09-21 | Outpatient (CLI) | payer MEDICARE, OTHER ==
[2024-09-21 15:30] LABS: Blood Urea Nitrogen 51.8 mg/dL (9.0-27.0); Calcium 8.8 mg/dL (8.7-10.3); Chloride 99 mmol/L (96-109); Glucose 74 mg/dL (70-110); Potassium 4.4 mmol/L (3.5-5.5); Sodium 129 mmol/L (135-145)
== END | disposition home or self-care (01) ==
LOC: LABWHC1 07:21
PROVIDERS: ATTEND Internal Medicine
DX: N18.32 Chronic kidney disease, stage 3b (principal)
CPT/HCPCS: 36415; 80048

== ENCOUNTER → 2024-09-27 | Outpatient (CLI) | payer MEDICARE, OTHER ==
[2024-09-27 15:27] LABS: BUN/Creat Ratio 39.79 Ratio (12.00-20.00); Blood Urea Nitrogen 75.6 mg/dL (9.0-27.0); Calcium 9.7 mg/dL (8.7-10.3); Carbon Dioxide 18.3 mmol/L (21.6-31.8); Chloride 111 mmol/L (96-109); Glucose 170 mg/dL (70-110); Potassium 4.8 mmol/L (3.5-5.5); Sodium 144 mmol/L (135-145)
[2024-09-27 21:01] LABS: Appearance,Urine Cloudy (Clear); Bilirubin,Urine Negative (Negative); Blood,Urine Negative (Negative); Color,Urine Yellow (Yellow); Ketones,Urine Negative (Negative); Nitrite,Urine Negative (Negative); PH, Urine 5.5; Specific Gravity,Urine 1.021 (1.001-1.030); Urobilinogen,Urine 0.2 E.U./DL
[2024-09-27 21:24] LABS: Bacteria,Urine 4+ (None Seen)
== END | disposition home or self-care (01) ==
LOC: LABWHC1 08:48
PROVIDERS: ATTEND Internal Medicine
DX: N18.32 Chronic kidney disease, stage 3b (principal)
CPT/HCPCS: 36415; 80048; 81001; 82043; 82570